=== PATIENT | female | born 1935 | race Caucasian/White ===

== ENCOUNTER 2019-04-06 12:21 | Observation (INO) | payer OTHER ==
[~2019-04-06] VITALS: Ht 160 cm; Wt 56.7 kg
[~2019-04-06 12:21] MED LIST: ASA81 MG PO; Z.0.ALLOPURINOL100 M PO; Z.0.BENAZEPRIL HCL40; Z.0.INDAPAMIDE1.25 M; Z.0.LATANOPROST2.5 M; Z.0.NORVASC5 MG; Z.0.OMEPRAZOLE20 MG; Z.0.SYNTHROID200 MCG; [UNRECOGNIZED DRUG - OTHER]; [UNRECOGNIZED DRUG - OTHER] PO
--- OUTSIDE RECORDS SUMMARY | 2019-04-06 12:25 | XMS REPORT | Summary of Care ---
Author Author Paige Lambert M.A. Organization Unknown Address [facility] Phone Unavailable Care Team Providers Care Film Reproducer Name Role Phone FANNIE Carlton, ELOISE Unavailable Unavailable RUPAL Diane, EDITH Unavailable Unavailable RUPAL AC IA, EIDTH Morales Unavailable Unavailable Shima AC, Kannan Unavailable Unavailable Gavino Aaron MD, Alexandre Unavailable Unavailable MIC AC, ANDREA Dorantes Unavailable Unavailable PRETTY AC, JOSEPH Unavailable Unavailable SILVESTRE PIEDRAP, ELADIO Unavailable Unavailable Unavailable Unavailable Functional Status Name Dates Details Functional status health issues are not documented Status: Name Dates Details Cognitive status health issues are not documented Status: Problems Name Dates Details Preventative health care (V70.0, Z00.00) Status: Active Pain in joint of right shoulder (719.41, M25.511) Status: Active Cramps, extremity (729.82, R25.2) Status: Active Polyneuropathy (356.9, G62.9) Status: Active Skin rash (782.1, R21) Status: Active Eczema, allergic (692.9, L23.9) Status: Active Pyuria (791.9, N39.0) Status: Active Need for pneumococcal vaccination (V03.82, Z23) Status: Active Low back pain (724.2, M54.5) Status: Active Left hip pain (719.45, M25.552) Status: Active Numbness and tingling (782.0, R20.0) Status: Active Advance directive discussed with patient (V65.49, Z71.89) Status: Active Cervical neck pain with evidence of disc disease (722.91, M50.90) Status: Active 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, M17.12) Status: Active Bradycardia, sinus (427.89, R00.1) Status: Active Localized primary osteoarthritis of lower leg, right (715.16, M17.11) Status: Active Edema (782.3, R60.9) Status: Active Normal routine physical examination (V70.0, Z00.00) Status: Active Chronic obstructive pulmonary disease (496, J44.9) Status: Active Hypercalcemia (275.42, E83.52) Status: Active Need for influenza vaccination (V04.81, Z23) Status: Active 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, 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: Active Unclassifiable eczema (692.9, L30.9) Status: Active Varicose veins of legs (454.9, I83.93) Status: Active Skin lesion (709.9, L98.9) Status: Active Limb pain (729.5, M79.609) Status: Active TMJ (dislocation of temporomandibular joint) (830.0, S03.00XA) Status: Active Influenza vaccination ordered (V49.89, Z78.9) Status: Active Dizziness (780.4, R42) Status: Active Postmenopause (V49.81, Z78.0) Status: Active Symptoms of upper respiratory infection (URI) (786.09, R09.89) Status: Active Encounter for diabetic foot exam (250.00, E11.9) Status: Active Right knee pain (719.46, M25.561) Status: Active Peripheral edema (782.3, R60.9) Status: Active Need for hepatitis C screening test (V73.89, Z11.59) Status: Active Abdominal pain, acute, bilateral lower quadrant (789.03, R10.31) Status: Active Abnormal laboratory test (796.4, R89.9) Status: Active Influenza vaccine needed (V04.81, Z23) Status: Active Urinary tract infection (599.0, N39.0) Status: Active Vaginal spotting (623.8, N93.9) Status: Active Acute urinary tract infection (599.0, N39.0) Status: Active Elevated AST (SGOT) (790.4, R74.0) Status: Active Other cirrhosis of liver (571.5, K74.69) Status: Active 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, 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 Pain, hand (729.5, M79.643) Status: Active Wrist pain (719.43, M25.539) Status: Active Skin infection (686.9, L08.9) Status: Active Contact dermatitis (692.9, L25.9) Status: Active Annual physical exam (V70.0, Z00.00) Status: Active Advance directive discussed with patient (V65.49, Z71.89) Status: Active Allergic rhinitis (477.9, J30.9) Status: Active Asymptomatic hyperuricemia (790.6, E79.0) Status: Active B12 deficiency (266.2, E53.8) Status: Active Balance problem (781.99, R26.89) Status: Active Bilateral hearing loss (389.9, H91.93) Status: Active Chronic venous stasis dermatitis 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.1, 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) Status: Active CTS (carpal tunnel syndrome) (354.0, G56.00) Status: Active Esophageal reflux disease (530.81, K21.9) Status: Active Hypothyroidism (244.9, E03.9) Status: Active Osteoporosis, 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 * Start : 08-Dec-2018 Active Aspirin 81 MG TABS one daily * Refills: 0 Active Fish Oil CAPS TAKE 3 CAPSULE DAILY * Refills: 0 Active Centrum Silver TABS TAKE 1 TABLET DAILY. * Refills: 0 Active NovoLOG FlexPen 100 UNIT/ML Subcutaneous Solution Pen-injector Inject 5 units with each meal * Quantity: 3 Refills: 3 EDITH GOLDSMITH M.D. * Start : 16-Oct-2018 Active 5 x 3 ML Pen BD Pen Needle Thao U/F 32G X 4 MM Use 4 times a day as directed * Quantity: 400 Refills: 1 ELOISE GRECO N.P. * Start : 06-Dec-2014 Active Tylenol 500 MG CAPS TAKE 1 CAPSULE EVERY 6 HOURS as needed * Refills: 0 Active Levothyroxine Sodium 175 MCG Oral Tablet TAKE 1 TABLET BY MOUTH EVERY DAY * Quantity: 90 Refills: 1 ELOISE GRECO N.P. * Start : 20-Nov-2018 Active Pancreaze 4200 UNIT Oral Capsule Delayed Release Particles TAKE 1 CAPSULE BY MOUTH THREE TIMES A DAY * Quantity: 270 Refills: 1 EDITH GOLDSMITH M.D. * Start : 29-May-2015 Active Calcium 600 600 MG Oral Tablet TAKE 1 TABLET DAILY. * Quantity: 30 Refills: 0 ELOISE GRECO N.P. Active Levemir FlexTouch 100 UNIT/ML Subcutaneous Solution Pen-injector INJECT 25 UNITS SUBCUTANEOUSLY EVERY EVENING * Quantity: 3 Refills: 1 ELOISE GRECO N.P. * Start : 08-Dec-2018 Active 5 x 3 ML Pen Cranberry TABS TAKE 1 TABLET DAILY * Refills: 0 Active Losartan Potassium 50 MG Oral Tablet TAKE 1 TABLET BY MOUTH TWICE DAILY * Quantity: 180 Refills: 1 ELOISE GRECO N.P. * Start : 29-Jan-2016 Active dilTIAZem HCl ER Coated Beads 120 MG Oral Capsule Extended Release 24 Hour Take 1 capsule once day. * Quantity: 30 Refills: 2 ELOISE GRECO N.P. * Start : 30-Jan-2017 Active OneTouch Verio In Vitro Strip USE DIRECTED TEST 3 TIMES DAILY. * Quantity: 100 Refills: 5 EDITH GOLDSMITH M.D. * Start : 04-Nov-2018 Active OneTouch Jaquelin Lancets Fine CHECK BLOOD GLUCOSE THREE TIMES DAILY * Quantity: 100 Refills: 5 EDITH GOLDSMITH M.D. * Start : 22-Sep-2017 Active OneTouch Verio w/Device Kit Use as directed 3 times daily * Quantity: 1 Refills: 0 EDITH GOLDSMITH M.D. * Start : 22-Sep-2017 Active Omeprazole 40 MG Oral Capsule Delayed Release TAKE 1 CAPSULE DAILY * Quantity: 90 Refills: 1 EDITH GOLDSMITH M.D. * Start : 24-Sep-2018 Active Allergies and Adverse Reactions Name Dates Details Codeine Derivatives (Allergy) Status: Active Lotensin TABS (Allergy) Status: Active Lyrica CAPS (Allergy) Status: Active Tramadol (Allergy) Status: Active Vicodin TABS (Allergy) Status: Active Past Medical History Name Dates Details History of Abnormal urine odor (791.9, R82.90) Status: Resolved History of Acute pain of both ears (388.70, H92.03) Status: Resolved History of Acute upper respiratory infection (465.9, J06.9) Status: Resolved History of chest pain (V13.89, Z87.898) Status: Resolved History of dermatitis (V13.3, Z87.2) Status: Resolved History of Fungal infection (117.9, B49) Status: Resolved History of glaucoma (V12.49, Z86.69) Status: Resolved History of Hernia (553.9, K46.9) Status: Resolved History of Hip pain, bilateral (719.45, M25.551) Status: Resolved History of pancreatitis (V12.79, Z87.19) Status: Resolved Procedures Procedure Dates Details History of Hysterectomy Completed History of Hernia Repair Completed 21-Aug-2012 History of Cholecystectomy Completed History of Pancreatic Surgery Completed Immunization Name Dates Details Pneumococcal polysaccharide vaccine, 23 valent on: 12-Jan-2009 Influenza on: 27-Mar-2012 Fluzone INJ Lot #: [id number] on: 14-Jun-2013 Fluzone INJ Lot #: [id number] on: 02-May-2014 Fluvirin INJ Lot #: [id number] on: 03-Apr-2015 Prevnar 13 Intramuscular Suspension Lot #: [id number] on: 03-Apr-2015 Prevnar 13 Intramuscular Suspension on: 13-May-2016 Fluzone High-Dose 0.5 ML Intramuscular Suspension Prefilled Syringe Lot #: [id number] on: 28-May-2016 Fluzone High-Dose 0.5 ML Intramuscular Suspension Prefilled Syringe Lot #: [id number] on: 21-Mar-2017 Fluzone High-Dose 0.5 ML Intramuscular Suspension Prefilled Syringe Lot #: [id number] on: 21-Apr-2018 Family History Name Dates Details Family history of Hypertension (V17.49) Status: Active Family history of Acute Myocardial Infarction (V17.3) Status: Active Name Dates Details Family history of Hypertension (V17.49) Status: Active Family history of Acute Myocardial Infarction (V17.3) Status: Active Family history of Glaucoma (V19.11) Status: Active Name Dates Details Family history of liver cancer (V16.0, Z80.0) Status: Active Social History Name Dates Details - Status: Name Dates Details Never smoker Vital Signs Date Test Result Details :06 Heart Rate 136 /min Status: O2 SAT 99 % Status: Comments: Source: RA :04 BP Systolic 108 mm[Hg] Status: Comments: Location: LUE; Position: Sitting BP Diastolic 66 mm[Hg] Status: Comments: Location: LUE; Position: Sitting Heart Rate 137 /min Status: Height 63 in Status: Weight 125.8 lb Status: Body Mass Index Calculated 22.28 kg/m2 Status: Body Surface Area Calculated 1.59 m2 Status: Respiration Rate 16 /min Status: Temperature 97.5 f Status: Comments: Method: Oral :17 BP Systolic 131 mm[Hg] Status: Comments: Location: LUE; Position: Sitting BP Diastolic 52 mm[Hg] Status: Comments: Location: LUE; Position: Sitting Heart Rate 65 /min Status: Comments: Location: L Radial; :15 BP Systolic 146 mm[Hg] Status: Comments: Location: LUE; Position: Sitting BP Diastolic 60 mm[Hg] Status: Comments: Location: LUE; Position: Sitting Heart Rate 80 /min Status: Comments: Location: L Radial; Height 63 in Status: Weight 125 lb Status: Body Mass Index Calculated 22.14 kg/m2 Status: Body Surface Area Calculated 1.58 m2 Status: Results Date Description Value Details :46 [QLH] IRON, TOTAL IRON, TOTAL 90 {mcg/dl} (Normal) Range: 45-160 :46 [QLH] ALPHA-FETOPROTEIN (AFP) AND AFP-L3 Comments: REPORT COMMENT:FASTING:NO AFP 1.2 ng/ml (Below low threshold) Range: 1.6-4.5 AFP-L3 SEE NOTE % Range: 0.5-9.9 Comments: NO VALUE DETERMINED The microActiveOtotal analysis system ([employer]) employs microchipcapillary electrophoresis to quantitatively measure AFP andAFP-L3% by immunochemical techniques. The assay principleinvolves DNA-coupled antibodies and dye labeled antibodies,which react with proteins in liquid phase within themicrochannels. Both analytes are quantified usinglaser-induced fluorescence. Instrument and associatedreagents are supplied by [employer] [place], [place], [place]. Patients with elevated AFP-L3% values (>=10%) have beenshown to have an increased risk of developing hepatocellularcarcinoma (HCC). In a selected group of patients, the riskof developing HCC was 48.8% with an elevated AFP-L3% and was7.0% with a negative AFP-L3% result. Limitations of Procedure: 1. The AFP-L3% value is not calculated when the AFP-K3brfplvedtpozk is below 0.3 ng/mL. In such cases the AFP-L3%result field will indicate "NO VALUE DETERMINED" 2.Heterophilic antibodies in human serum can react with theimmunoglobulins incl uded in the assay components causinginterference with in vitro immunoassays. Samples frompatients routinely exposed to animals or animal serumproducts can demonstrate this type of interference and canpotentially cause an anomalous result. The [employer] uTAS Systemhas been formulated to minimize the risk of theinterference; however, potential interactions between raresera and ingredients can occur. 3. For diagnostic purposes,the results obtained from this assay should always be usedand interpreted in conjunction with clinical examination,patient medical history, and other findings. 4. Pregnancycan cause h igh values of AFP-L3% and AFP is notinterpretable in females. 5. AFP producing tumorsother than HCC can show high values of AFP-L3% and AFP. 6.Samples from patients having acute hepatitis and fulminanthepatitis can show high values of AFP-L3% and AFP. 7. It isrecommended that this assay be used in conjunction withimaging studies for clinical diagnosis. 8. Liver diseasescaused by other etiologies such as alcoholic liver disease,hemachromatosis, Vahe's disease, autoimmune hepatitis andsteatohepatisis have not been studied with the assay. 9. Theassay is linear for AFP concentration of 0.3 to 1000 ng/mL.10. Values obtained with different assay methods or kitscannot be used interchangeably. [id number] [QL] CBC (INCLUDES DIFF/PLT) WHITE BLOOD CELL COUNT 4.7 {Thousand/u} (Normal) Range: 3.8-10.8 RED BLOOD CELL COUNT 3.45 {Million/uL} (Below low threshold) Range: 3.80-5.10 HEMAGLOBIN 11.4 g/dl (Below low threshold) Range: 11.7-15.5 HEMATOCRIT 33.7 % (Below low threshold) Range: 35.0-45.0 MCV 97.7 fL (Normal) Range: 80.0-100.0 MCH 33.0 pg (Normal) Range: 27.0-33.0 MCHC 33.8 g/dl (Normal) Range: 32.0-36.0 RDW 13.1 % (Normal) Range: 11.0-15.0 PLATELET COUNT 250 {Thousand/u} (Normal) Range: 140-400 MPV 10.3 fL (Normal) Range: 7.5-12.5 ABSOLUTE NEUTROPHILS 2848 {cells/uL} (Normal) Range: 9083-1638 ABSOLUTE LYMPHOCYTES 1297 {cells/uL} (Normal) Range: 850-3900 ABSOLUTE MONOCYTES 409 {cells/uL} (Normal) Range: 200-950 ABSOLUTE EOSINOPHILS 118 {cells/uL} (Normal) Range: 15-500 ABSOLUTE BASOPHILS 28 {cells/uL} (Normal) Range: 0-200 NEUTROPHILS 60.6 % (Normal) LYMPHOCYTES 27.6 % (Normal) MONOCYTES 8.7 % (Normal) EOSINOPHILS 2.5 % (Normal) BASOPHILS 0.6 % (Normal) [id number]-[id number] [[facility]] VITAMIN B12 Comments: REPORT COMMENT:FASTING:NO VITAMIN B12 558 pg/ml (Normal) Range: 200-1100 Plan of Care Name Dates Details Planned Observations Planned Goals not documented Planned Encounters Appointment; KANNAN RETANA M.D. On: 27-Sep-2019 10:45 Instructions Name Dates Details Instructions not documented Encounters Appointment; ALFRED FORD Encounter Diagnosis: Problem not documented On: 17-Apr-2017 10:30 Appointment; ELOISE GRECO NP Encounter Diagnosis: Problem not documented On: 20-May-2017 9:00 Appointment; ELOISE GRECO NP Encounter Diagnosis: Problem not documented On: 27-May-2017 10:15 Appointment; ELOISE GRECO NP Encounter Diagnosis: Problem not documented On: 19-Aug-2017 10:30 Appointment; ELOISE GRECO NP Encounter Diagnosis: Problem not documented On: 27-Aug-2017 9:30 Appointment; ELOISE GRECO NP Encounter Diagnosis: Problem not documented On: 28-Oct-2017 9:15 Appointment; ELOISE GRECO NP Encounter Diagnosis: Problem not documented On: 04-Dec-2017 12:00 Appointment; ELOISE GRECO NP Encounter Diagnosis: Problem not documented On: 04-Feb-2018 12:00 Appointment; EDITH GOLDSMITH M.D. Encounter Diagnosis: Problem not documented On: 13-Feb-2018 10:30 Appointment; Marc Marshall M.D. Encounter Diagnosis: Problem not documented On: 20-Feb-2018 11:15 Appointment; KANNAN RETANA M.D. Encounter Diagnosis: Problem not documented On: 04-Mar-2018 11:30 Appointment; KANNAN RETANA M.D. Encounter Diagnosis: Problem not documented On: 25-Mar-2018 10:30 Appointment; EDITH GOLDSMITH M.D. Encounter Diagnosis: Problem not documented On: 21-Apr-2018 11:00 Appointment; EDITH GOLDSMITH M.D. Encounter Diagnosis: Problem not documented On: 21-Apr-2018 11:00 Appointment; ALEXANDRE SANTOYO M.D. Encounter Diagnosis: Problem not documented On: 23-Apr-2018 12:50 Appointment; EDITH GOLDSMITH M.D. Encounter Diagnosis: Problem not documented On: 25-May-2018 11:00 Appointment; EDITH GOLDSMITH M.D. Encounter Diagnosis: Problem not documented On: 19-Jun-2018 11:30 Appointment; KANNAN RETANA M.D. Encounter Diagnosis: Problem not documented On: 24-Jun-2018 10:15 Appointment; ELOISE GRECO NP Encounter Diagnosis: Problem not documented On: 19-Aug-2018 10:30 Appointment; EDITH GOLDSMITH M.D. Encounter Diagnosis: Problem not documented On: 24-Sep-2018 11:30 Appointment; ELOISE GRECO NP Encounter Diagnosis: Problem not documented On: 08-Oct-2018 10:15 Appointment; ALEXANDRE SANTOYO M.D. Encounter Diagnosis: Problem not documented On: 22-Oct-2018 12:30 Appointment; KANNAN RETANA M.D. Encounter Diagnosis: Problem not documented On: 30-Nov-2018 9:30 Appointment; ELADIO RIVERS NP Encounter Diagnosis: Problem not documented On: 19-Dec-2018 10:15 Appointment; KANNAN RETANA M.D. Encounter Diagnosis: Problem not documented On: 21-Dec-2018 11:00 Appointment; EDITH GOLDSMITH M.D. Encounter Diagnosis: Problem not documented On: 23-Dec-2018 10:30 Appointment; EDITH GOLDSMITH M.D. Encounter Diagnosis: Problem not documented On: 29-Dec-2018 11:00 Appointment; EDITH GOLDSMITH M.D. Encounter Diagnosis: Problem not documented On: 01-Feb-2019 11:30 Appointment; KANNAN RETANA M.D. Encounter Diagnosis: Problem not documented On: 29-Mar-2019 11:00 Appointment; EDITH GOLDSMITH M.D. Encounter Diagnosis: Problem not documented On: 06-Apr-2019 11:00
--- OUTSIDE RECORDS SUMMARY | 2019-04-06 12:25 | XMS REPORT ---
Author Author [facility] Address Unknown Phone Unavailable Care Team Providers Care Clothing Cutter Name Role Phone Tommie BALES Unavailable Unavailable Problems This patient has no known problems. Allergies, Adverse Reactions, Alerts This patient has no known allergies or adverse reactions. Medications This patient has no known medications. Encounters Start Date/Time End Date/Time Encounter Type Admission Type Attending Clinicians Care Facility Care Department Encounter ID 2018-12-01 15:33:51 Outpatient [id number] Results Test Description Test Time Test Comments Text Results Atomic Results Result Comments CT BRAIN WO [place] [address] Patient Name: ANGEL LUIS ISABEL MR #: [id number] : 1935 Age/Sex: 81/F Req #: [id number] Adm Physician: Ordered by: ERICA BALES MD Report #: [id number] Location: ER Room/Bed: Procedure: [id number] CT/CT BRAIN WO Exam Date: Exam Time: REPORT STATUS: Signed EXAMINATION: Head CT HISTORY: Hypertension, dizziness COMPARISON: None. TECHNIQUE: Multidetector axial images were obtained without contrast from the foramen magnum to the vertex . The images were reconstructed using brain and bone algorithms. Thin section brain images were reformatted into coronal and sagittal planes. Intravenous contrast: None. Motion/streaking artifact limits the evaluation of the skull base and posterior cranial fossa. FINDINGS: Parenchyma: 1. Few scattered white matter hypodensities, most likely nonspecific bowel chronic microvascular ischemic changes. Age indeterminate likely chronic tiny lacunar infarct in the bilateral head of the caudate nuclei and right lentiform nucleus. 2. No mass or hemorrhage. No CT evidence of acute territorial vascular insult. Extra-axial s paces:No abnormal density. No extra-axial fluid collections Brain volume: Normal for age. Ventricles: No hydrocephalus or displacement. Arteries: No density suggestive of thrombus. Dural sinuses: No abnormal density. Extra-axial spaces: No abnormal density. Foramen magnum: No mass, Chiari malformation, or basilar invagination. Sella: No obvious mass. Paranasal/mastoid sinuses: Imaged portions unremarkable. Skull/Scalp: No lytic or blastic lesions. No fractures. IMPRESSION: 1. No acute abnormalities, particularly no intracranial hemorrhage or cortical infarct. 2. Mild chronic microvascular ischemic changes as detailed above. Signed by: Dr. Mayela Garcia M.D. on 03/14/2017 5:44 PM Dictated By: MAYELA GARCIA MD 43 Transcribed By: STEPHENIE on 03/14/171743 COPY TO: ERICA BALES MD CHEST SINGLE (PORTABLE) [place] [address] Patient Name: ANGEL LUIS ISABEL MR #: [id number] : 1935 Age/Sex: 81/F Req #: [id number] Adm Physician: Ordered by: ERICA BALES MD Report #: [id number] Location: ER Room/Bed: Procedure: [id number] DX/CHEST SINGLE (PORTABLE) Exam Date: Exam Time: REPORT STATUS: Signed PROCEDURE: A single AP view of the chest. COMPARISON: DX, CHEST SINGLE, 09/21/2011, 15:10. INDICATIONS: SYNCOPE FINDINGS: Lines/tubes: None. Lungs: The lungs are well inflated and clear. There is no evidence of pneumonia or pulmonary edema. Pleura: There is no pleural effusion or pneumothorax. Heart and mediastinum: The heart and the mediastinum are unremarkable. Bones: No acute bony abnormality. IMPRESSION: 1. No acute cardiopulmonary abnormalities. Jericho Simms M.D. Dictated by: Jericho Simms M.D. on 03/14/2017 at 17:54 Electronically approved by: Jericho Simms M.D. on 03/14/2017 at 17:54 Dictated By: JERICHO SIMMS MD 53 Transcribed By: MARCO on 03/14/171753 COPY TO: ERICA BALES MD
--- OUTSIDE RECORDS SUMMARY | 2019-04-06 12:31 | XMS REPORT | Summary of Care ---
Author Author Paige Lambert M.A. Organization Unknown Address [facility] Phone Unavailable Care Team Providers Care Paradi Tender Name Role Phone FANNIE Carlton, ELOISE Unavailable Unavailable RUPAL Diane, EDITH Unavailable Unavailable RUPAL AC FL, EDITH Morales Unavailable Unavailable Shima AC, Kannan Unavailable [...] Active Liver cirrhosis (571.5, K74.60) Status: Active Narrow complex tachycardia (427.89, I47.1) Status: Active Medications Name Dates Details Allopurinol [...] each meal * Quantity: 3 Refills: 3 GOLDSMITH M.D., EDITH * Start : 16-Oct-2018 Active 5 x [...] M.D. * Start : 04-Nov-2018 Active OneTouch Delalena Lancets Fine CHECK BLOOD GLUCOSE THREE TIMES DAILY * Quantity: 100 Refills: 5 EDITH GOLDSMITH M.D. * Start : 22-Sep-2017 Active OneTouch Verio w/Device Kit Use as directed 3 times daily * Quantity: 1 Refills: 0 EDITH GOLDSMITH M.D. * Start : 22-Sep-2017 Active Omeprazole 40 MG Oral Capsule Delayed Release TAKE 1 CAPSULE DAILY * Quantity: 90 Refills: 1 VERA GOLDSMITH M.D.OLD * Start : 24-Sep-2018 Active Allergies and [...] Influenza on: 27-Mar-2012 Fluzone INJ Lot #: [id number] on: 14-Jun-2013 Fluzone INJ Lot #: [id number] on: 02-May-2014 Fluvirin INJ Lot #: [id number] on: 03-Apr-2015 Prevnar 13 Intramuscular Suspension Lot #: [id number] on: 03-Apr-2015 Prevnar 13 Intramuscular Suspension on: 13-May-2016 Fluzone High-Dose 0.5 ML Intramuscular Suspension Prefilled Syringe Lot #: [id number] on: 28-May-2016 Fluzone High-Dose 0.5 ML Intramuscular Suspension Prefilled Syringe Lot #: [id number] on: 21-Mar-2017 Fluzone High-Dose 0.5 ML Intramuscular Suspension Prefilled Syringe Lot #: [id number] on: 21-Apr-2018 Family History Name Dates Details [...] Range: 0.5-9.9 Comments: NO VALUE DETERMINED The micro-total analysis system (uTASWako) employs microchipcapillary electrophoresis to quantitatively measure AFP andAFP-L3% by immunochemical techniques. The assay principleinvolves DNA-coupled antibodies and dye labeled antibodies,which react with proteins in liquid phase within themicrochannels. Both analytes are quantified usinglaser-induced fluorescence. Instrument and associatedreagents are supplied by [employer] [place], [place], [place]. Patients with elevated AFP-L3% values (>=10%) have beenshown to have an increased risk of developing hepatocellularcarcinoma (HCC). In a selected group of patients, the riskof developing HCC was 48.8% with an elevated AFP-L3% and was7.0% with a negative AFP-L3% result. Limitations of Procedure: 1. The AFP-L3% value is not calculated when the AFP-H9kkpwxrwpoyyng is below 0.3 ng/mL. In such cases the AFP-L3%result field will indicate "NO VALUE DETERMINED" 2.Heterophilic antibodies in human serum can react with theimmunoglobulins incl uded in the assay components causinginterference with in vitro immunoassays. Samples frompatients routinely exposed to animals or animal serumproducts can demonstrate this type of interference and canpotentially cause an anomalous result. The [employer] Systemhas been formulated to minimize the risk [...] assay methods or kitscannot be used interchangeably. [id number] [[facility]] CBC (INCLUDES DIFF/PLT) WHITE BLOOD CELL COUNT [...] 7.5-12.5 ABSOLUTE NEUTROPHILS 2848 {cells/uL} (Normal) Range: 2194-2553 ABSOLUTE LYMPHOCYTES 1297 {cells/uL} (Normal) Range: 850-3900 ABSOLUTE MONOCYTES 409 {cells/uL} (Normal) Range: 200-950 ABSOLUTE EOSINOPHILS 118 {cells/uL} (Normal) Range: 15-500 ABSOLUTE BASOPHILS 28 {cells/uL} (Normal) Range: 0-200 NEUTROPHILS 60.6 % (Normal) LYMPHOCYTES 27.6 % (Normal) MONOCYTES 8.7 % (Normal) EOSINOPHILS 2.5 % (Normal) BASOPHILS 0.6 % (Normal) [id number] [[facility]] VITAMIN B12 Comments: REPORT COMMENT:FASTING:NO VITAMIN B12 558 pg/ml (Normal) Range: 200-1100 Plan of Care Name Dates Details Planned Observations Planned Goals not documented Planned Encounters Appointment; KANNAN RETANA M.D. On: 27-Sep-2019 10:45 Interventions Provided Labs/Procedures/Imaging* EKG (In Office); Done: 06 Apr 2019 Plan* To ED at [facility] for evaluation. Instructions Name Dates Details Instructions not documented Encounters Appointment; ALFRED FORD Encounter Diagnosis: Problem not documented On: 17-Apr-2017 10:30 Appointment; ELOISE GRECO NP Encounter Diagnosis: Problem not documented On: 20-May-2017 9:00 Appointment; ELOISE GRECO NP Encounter Diagnosis: Problem not documented On: 27-May-2017 10:15 Appointment; ELOISE GRECO NP Encounter Diagnosis: Problem not documented On: 19-Aug-2017 10:30 Appointment; ELOISE GRECO COMPUTER VIDEO GAME DESIGNER Encounter Diagnosis: Problem not documented On: 27-Aug-2017 9:30 Appointment; ELOISE GRECO COMPUTER VIDEO GAME DESIGNER Encounter Diagnosis: Problem not documented On: 28-Oct-2017 [...]
[2019-04-06] MEDS ORDERED: DILTIAZEM HCL 5 MG/ML 5 ML VIAL IV ONE (13:00)
[2019-04-06 13:21] LABS: BASOPHILS % 0.3 % (0.0-1.0); EOSINOPHILS # (AUTO) 0.1 (0.0-0.4); EOSINOPHILS % 1.9 % (0.0-6.0); HEMATOCRIT 37.6 % (34.2-44.1); HEMOGLOBIN 12.6 g/dL (12.0-16.0); LYMPHOCYTES # (AUTO) 1.6 (1.0-3.2); MEAN CORPUSCULAR HEMOGLOBIN 33.1 pg (28-32); MEAN CORPUSCULAR HGB CONC 33.5 g/dL (31-35); MEAN CORPUSCULAR VOLUME 98.7 fL (81-99); MONOCYTES # (AUTO) 0.7 (0.2-0.8); MONOCYTES % 10.3 % (4.4-11.3); NEUTROPHILS # (AUTO) 4.5 (2.1-6.9); NEUTROPHILS % 64.1 % (38.7-80.0); PLATELET COUNT 241 x10e3/uL (140-360); RED BLOOD COUNT 3.81 x10e6/uL (3.6-5.1); RED CELL DISTRIBUTION WIDTH 13.2 % (11.7-14.4)
--- NOTE | 2019-04-06 13:30 | Diagnostic Imaging Report ---
Chest, 1 view, 04/06/2019. History: Shortness of breath. Comparison: None available. Findings: The cardiomediastinal silhouette and pulmonary vasculature are within normal limits for a portable exam. There is no focal consolidation or pleural effusion. Advanced degenerative changes are noted in both shoulders. There are no acute osseous or soft tissue abnormalities. Impression: No acute cardiopulmonary abnormality. Signed by: Lazaro Castellon on 04/06/2019 1:27 PM
[2019-04-06 13:39] LABS: ALBUMIN 3.4 g/dL (3.5-5.0); ALBUMIN/GLOBULIN RATIO 0.8 (0.8-2.0); CALCIUM 10.4 mg/dL (8.4-10.2); CREATININE, SERUM 0.94 mg/dL (0.57-1.11)
[2019-04-06 13:49] LABS: CREATINE KINASE MB 2.6 ng/mL (0-5.0)
[2019-04-06 13:51] LABS: BILIRUBIN,URINE NEGATIVE (NEGATIVE); CLARITY,URINE CLOUDY (CLEAR); COLOR,URINE YELLOW (YELLOW); KETONES,URINE NEGATIVE (NEGATIVE); LEUKOCYTE ESTERASE ,URINE NEGATIVE (NEGATIVE); NITRITE,URINE NEGATIVE (NEGATIVE); PROTEIN,URINE DIPSTICK NEGATIVE (NEGATIVE); URINE UROBILINOGEN 0.2 mg/dL (0.2 - 1)
[2019-04-06 14:21] LABS: INR 0.91; PROTHROMBIN TIME 12.7 seconds (11.9-14.5)
[2019-04-06 14:22] LABS: PARTIAL THROMBOPLASTIN TIME 28.3 seconds (23.8-35.5)
[2019-04-06 14:51] LABS: EPITHELIAL CELLS,URINE RARE /LPF; RENAL EPITHELIAL CELLS,URINE RARE
[2019-04-06] MEDS ORDERED: ASPIRIN 81 MG CHEW TAB PO ONE (16:45)
[2019-04-06] MEDS ORDERED: LEVOTHYROXINE112 MCG PO (19:10)
[2019-04-06] MEDS ORDERED: DILTIAZEM HCL 30 MG TAB PO PRN (19:15)
[2019-04-06] MEDS ORDERED: CALCIUM CARBON500 MG PO (19:20)
[2019-04-06] MEDS ORDERED: LEVEMIR100 UNIT/1 SQ (19:20)
[2019-04-06] MEDS ORDERED: FISH OIL 1,2001 EAC1 (19:20)
[2019-04-06] MEDS ORDERED: LOSARTAN POTASS25 MG (19:20)
[2019-04-06] MEDS ORDERED: CRANBERRY200 MG (19:20)
[2019-04-06] MEDS ORDERED: CENTRUM SILVER1 EAC3 (19:20)
[2019-04-06] MEDS ORDERED: NOVOLOG100 UNIT/1 SQ (19:20)
[2019-04-06] MEDS ORDERED: DILTIAZEM 24HR120 M1 PO (19:20)
[2019-04-06] MEDS ORDERED: ACETAMINOP325 MG/10 PO (19:20)
--- NOTE | 2019-04-06 19:21 | NUR ---
REPORT TO AR SHEPARD
--- NOTE | 2019-04-06 20:44 | NUR ---
Received patient from the E.R. via stretcher, Patient is alert and responsive. Patient on a telemetry.
[2019-04-06 21:38] VITALS: BP 189/80
[2019-04-06 21:57] LABS: CREATINE KINASE MB 3.3 ng/mL (0-5.0)
[2019-04-06 22:03] VITALS: BP 189/80
[2019-04-06 22:09] VITALS: BP 189/80
--- NOTE | 2019-04-06 22:10 | NUR ---
Patient is not sure with the name of some medications she is allergic with.
--- NOTE | 2019-04-06 22:16 | NUR ---
bp still high 184/76 mmhg. Patient is asymptomatic.
--- NOTE | 2019-04-06 22:29 | NUR ---
Spoke with Dr. Todd Pro regarding patient's blood pressure. New orders received.
--- NOTE | 2019-04-06 22:58 | NUR ---
Cardiology Consult Dictation# [id number]
[2019-04-06] MEDS: LOSARTAN POTASSIUM 25 MG TAB PO SCH (22:59)
[2019-04-06] MEDS ORDERED: ENOXAPARIN SOD INJ 60 MG/0.6 ML SYR SC SCH (23:00)
[2019-04-06] MEDS ORDERED: DEXTROSE 50% SYRINGE 50 ML IV PRN (23:15)
[2019-04-06] MEDS: ENOXAPARIN SOD INJ 60 MG/0.6 ML SYR SC SCH (23:33)
[2019-04-07] VITALS (7 sets, daily range): BP systolic 164–197; BP diastolic 70–88
--- NOTE | 2019-04-07 02:09 | Consultation ---
DATE OF CONSULTATION: 04/06/2019 Cardiology Consultation REQUESTING PHYSICIAN: Dr. Pro. REASON FOR CONSULTATION: Atrial fibrillation. HISTORY OF PRESENT ILLNESS: This is an 83-year-old woman with history of hypertension, diabetes mellitus, hypothyroidism, and chronic pancreatitis, who was sent to the ER by her PCP Dr. Bess due to chest pain and abnormal EKG. The patient reports she was scheduled to see Dr. Bess for a regular followup today. In route to her office, she developed chest pressure, 5/10 in severity without shortness of breath, nausea, diaphoresis. The pain did not radiate. It only lasted approximately [address] Bess of her symptoms, therefore, she was instructed to present to the ER. She denies any edema, orthopnea, or PND. She was found to have atrial fibrillation on evaluation in the ER. Cardiology consult for further recommendations. REVIEW OF SYSTEMS: Negative except as per HPI. PAST MEDICAL HISTORY: 1. Diabetes mellitus. 2. Hypertension. 3. Hypothyroidism. 4. Chronic pancreatitis. PAST SURGICAL HISTORY: 1. Hysterectomy. 2. Cholecystectomy. 3. large pancreatic pseudocyst. SOCIAL HISTORY: No tobacco, alcohol, or illicit drug. FAMILY HISTORY: Pertinent for father with enlarged heart. ALLERGIES: PLEASE SEE EMR. MEDICATIONS: Please see medication list. PHYSICAL EXAMINATION: VITAL SIGNS: Temperature 98 degrees, pulse 70, respiratory rate 22, blood pressure 134/60, oxygen saturation 99% on room air. GENERAL: Elderly woman, well developed, well nourished, in no acute distress. HEENT: Normocephalic, atraumatic. Pupils equal. No scleral icterus. NECK: Supple. No thyromegaly or cervical lymphadenopathy. No carotid bruits. LUNGS: Clear to auscultation bilaterally. No wheeze or crackles. CARDIOVASCULAR: Normal rate, regular rhythm. No murmur, normal S1, S2. ABDOMEN: Soft, nontender. EXTREMITIES: No edema. NEUROLOGIC: Nonfocal exam. LABORATORY DATA: WBC 10.01, hemoglobin 12.6, hematocrit 37.6, platelets 241. Sodium 136, potassium 4, chloride 103, CO2 24, BUN 22, creatinine 0.94, AST 27, ALT 16, BNP 129, troponin 0.132, INR 0.91. EKG, atrial fibrillation. Telemetry, normal sinus rhythm. Chest x-ray, no acute cardiopulmonary abnormality. IMPRESSION: 1. Atrial fibrillation. 2. Chest pain. 3. Hypertension. 4. Diabetes mellitus. 5. Hypothyroidism. 6. Chronic pancreatitis. RECOMMENDATIONS: Trend cardiac biomarkers, obtain echocardiogram. Start the patient on metoprolol for rate control. The patient's CHADS-VASc score is 5. Anticoagulation, warfarin to continue, start the patient on Lovenox for now. I discussed warfarin versus NOAC with the patient and her family. They will consider their options. Given multiple risk factors, the patient will need ischemic evaluation. Monitor the patient closely on telemetry. Thank you for this consult. We will continue to follow. MD CARLOS Savage/NICHOLE /[id number]
[2019-04-07] MEDS: LEVOTHYROXINE SODIUM 100 MCG TAB PO SCH (05:25)
[2019-04-07] MEDS: LEVOTHYROXINE SODIUM 75 MCG TAB PO SCH (05:25)
[2019-04-07 06:24] LABS: BASOPHILS % 0.5 % (0.0-1.0); EOSINOPHILS # (AUTO) 0.2 (0.0-0.4); EOSINOPHILS % 3.5 % (0.0-6.0); HEMATOCRIT 31.8 % (34.2-44.1); HEMOGLOBIN 10.7 g/dL (12.0-16.0); LYMPHOCYTES # (AUTO) 1.3 (1.0-3.2); LYMPHOCYTES % 29.5 % (18.0-39.1); MEAN CORPUSCULAR HEMOGLOBIN 33.1 pg (28-32); MEAN CORPUSCULAR HGB CONC 33.6 g/dL (31-35); MEAN CORPUSCULAR VOLUME 98.5 fL (81-99); MONOCYTES # (AUTO) 0.6 (0.2-0.8); MONOCYTES % 13.2 % (4.4-11.3); NEUTROPHILS # (AUTO) 2.3 (2.1-6.9); NEUTROPHILS % 52.8 % (38.7-80.0); PLATELET COUNT 189 x10e3/uL (140-360); RED BLOOD COUNT 3.23 x10e6/uL (3.6-5.1); RED CELL DISTRIBUTION WIDTH 13.1 % (11.7-14.4)
[2019-04-07 06:59] LABS: BLOOD UREA NITROGEN 23 mg/dL (7-26); BUN/CREATININE RATIO 29 (6-25); CARBON DIOXIDE 24 mmol/L (22-29); CHLORIDE 107 mmol/L (98-107); EST GLOMERULAR FILTRATION RATE > 60 ML/MIN (60-); GLUCOSE 106 mg/dL (74-118); SODIUM 138 mmol/L (136-145)
--- NOTE | 2019-04-07 07:11 | NUR ---
REPORT RECEIVED FROM INDUSTRIAL TRUCK MECHANIC RN, PT STABLE, CALL LIGHT WITHIN REACH, WILL CONTINUE TO MONITOR
[2019-04-07 07:14] LABS: CHOL/HDL RATIO 4.1 (3.0-3.6)
[2019-04-07] MEDS: INSULIN LISPRO 100 UNIT/1 ML 3ML VIAL SQ SCH ×5 (07:30→21:56)
[2019-04-07] MEDS: OYST-CAL-D 500MG TABLET PO SCH (08:05)
[2019-04-07] MEDS: OMEPRAZOLE 20 MG CAP PO SCH (08:05)
[2019-04-07] MEDS: ALLOPURINOL 100 MG TAB PO SCH (08:08)
[2019-04-07 08:11] LABS: CREATINE KINASE MB 2.4 ng/mL (0-5.0)
[2019-04-07] MEDS: METOPROLOL TARTRATE 25 MG TAB PO SCH ×2 (09:00→17:55)
[2019-04-07] MEDS: LOSARTAN POTASSIUM 25 MG TAB PO SCH ×2 (09:55→17:55)
[2019-04-07] MEDS: ENOXAPARIN SOD INJ 60 MG/0.6 ML SYR SC SCH ×2 (11:00→22:21)
--- NOTE | 2019-04-07 11:27 | NUR ---
PT TAKEN OFF THE UNIT FOR STRESS TEST, LEFT IN STABLE CONDITION.
--- NOTE | 2019-04-07 11:59 | NUR ---
pt returned to room, stress test to be completed at 1300 per RN.
[2019-04-07] MEDS ORDERED: REGADENOSON 0.4 MG/5 ML SYR IV ONE (13:10)
--- NOTE | 2019-04-07 15:04 | NUR ---
PT ARRIVED BACK ON THE UNIT, IN STABLE CONDITION, WILL CONTINUE TO ASSESS
[2019-04-07] MEDS ORDERED: ONDANSETRON HCL INJ 2MG/ML 2ML 2 MG/ML VIAL IV PRN (16:00)
[2019-04-07 17:28] LABS: CREATINE KINASE MB 2.5 ng/mL (0-5.0)
--- NOTE | 2019-04-07 19:00 | NUR ---
received report from day nurse. patient is resting comfortably in bed. bed is in lowest position and call light is within reach. will continue to monitor patient.
--- NOTE | 2019-04-07 19:02 | NUR ---
REPORT GIVEN TO ONCOMING HEAD SWAMPER RN, PT AWAKE, ALERT, NO DISTRESS NOTED.
--- NOTE | 2019-04-07 20:18 | Myoview Stress Test ---
DATE OF STUDY: 04/07/2019 08:01:00 Stress Test - Treadmill ONLY PROCEDURE ANGELINA: Rest/stress single isotope SPECT imaging with pharmacologic stress and gated SPECT imaging. INDICATION: Chest pain. PROCEDURE IN DETAIL: Pharmacologic stress testing was performed with regadenoson per protocol. The heart rate was 67 beats per minute at rest and increased to 102 beats per minute during the regadenoson infusion. The rest blood pressure was 162/70 mmHg and decreased to 152/54 mmHg, which is a normal response. The resting electrocardiogram demonstrated normal sinus rhythm. There were no ST-segment changes suggestive of myocardial ischemia. Myocardial perfusion imaging was performed at rest following the injection of 11 mCi of tetrofosmin. At peak pharmacologic effect, the patient was injected with 33 mCi of tetrofosmin. Gated post-stress tomographic imaging was performed. FINDINGS: The overall quality of study is fair. Left ventricular cavity is noted to be normal size on the rest and stress studies. SPECT images demonstrate homogeneous tracer distribution throughout the myocardium. Gated SPECT imaging reveals normal myocardial thickening and wall motion. The left ventricular ejection fraction was calculated to be greater than 70%. IMPRESSION: Myocardial perfusion imaging is normal. Overall left ventricular systolic function was normal without regional wall motion abnormalities. Uma Reina MD ABS/MODL /[id number]
[2019-04-07] MEDS ORDERED: NON-FORMULARY MEDICATION (Insulin Detemir (Levemir) 25 UNITS) SQ SCH (21:00)
[2019-04-07] MEDS ORDERED: INSULIN GLARGINE 100 UNITS/ML VIAL SQ SCH (21:00)
[2019-04-07] MEDS ORDERED: HYDROXYZINE HCL 10 MG TAB PO PRN (22:30)
[2019-04-07] MEDS ORDERED: LORATADINE 10 MG TAB PO ONE (22:30)
[2019-04-07] MEDS ORDERED: LOSARTAN POTASSIUM 25 MG TAB PO SCH (22:43)
[2019-04-08] VITALS: BP 178/79
--- NOTE | 2019-04-08 00:49 | Progress Note ---
DATE: 04/07/2019 Cardiology Progress Note SUBJECTIVE: The patient denies chest pain or shortness of breath. She was seen for nuclear stress test today. OBJECTIVE: VITAL SIGNS: Temperature 96.3 degrees, pulse 77, respiratory rate 20, blood pressure 197/88, and oxygen saturation 99% on room air. GENERAL: Awake, alert, in no distress. LUNGS: Clear to auscultation bilaterally. No wheezes or crackles. CARDIOVASCULAR: Normal rate, regular rhythm. No murmur. Normal S1, S2. ABDOMEN: Soft, nontender. EXTREMITIES: No edema. CARDIAC MEDICATIONS: Metoprolol tartrate 25 mg p.o. b.i.d., losartan 50 mg p.o. b.i.d., levothyroxine 175 mcg p.o. daily, enoxaparin 60 mg subcu q.12 hours. LABORATORY DATA: WBC 4.31, hemoglobin 10.7, hematocrit 31.8, platelets 189. Sodium 138, potassium 4, chloride 107, CO2 of 24, BUN 23, creatinine 0.8. Troponin 0.036. LDL 88, HDL 34, cholesterol 139, triglycerides 87. TELEMETRY: Normal sinus rhythm. IMPRESSION: 1. Atrial fibrillation. 2. Chest pain. 3. Hypertension. 4. Diabetes mellitus. 5. Hypothyroidism. 6. Chronic pancreatitis. RECOMMENDATIONS: The patient ruled out for myocardial infarction with serial cardiac biomarkers. Nuclear stress test was without evidence of ischemia. The patient's CHADS-VASc score is 5. Continue Lovenox for CVA prophylaxis. Await decision by them regarding warfarin versus NOAC on discharge. Monitor the patient closely on telemetry while admitted. The patient's blood pressure is poorly controlled. We will resume her home dose of diltiazem and assess response. Thank you for this consult. We will continue to follow. Uma Reina MD ABS/MODL /[id number]
[2019-04-08 04:00] VITALS: BP 149/69
[2019-04-08] MEDS: LEVOTHYROXINE SODIUM 75 MCG TAB PO SCH (05:05)
[2019-04-08] MEDS: LEVOTHYROXINE SODIUM 100 MCG TAB PO SCH (05:05)
--- NOTE | 2019-04-08 07:08 | NUR ---
report given to day nurse. patient is resting comfortably in bed. bed is in lowest position and call dunham is within reach.
--- NOTE | 2019-04-08 07:12 | NUR ---
pt alert resp even and unlabored, no distress noted at this time pt is able to make needs known, call light in reach
[2019-04-08] MEDS ORDERED: PANCRELIPASE 6000 ER CAPSULE PO SCH (07:30)
[2019-04-08] MEDS: INSULIN LISPRO 100 UNIT/1 ML 3ML VIAL SQ SCH ×2 (07:30)
[2019-04-08] MEDS ORDERED: [UNRECOGNIZED DRUG - REMARK] PO SCH (07:30)
[2019-04-08 08:30] VITALS: BP 159/72
[2019-04-08] MEDS ORDERED: DILTIAZEM HCL ER 120 MG CAP PO SCH (09:00)
[2019-04-08 09:16] VITALS: BP 159/72
[2019-04-08] MEDS ORDERED: ONDANSETRON HCL 4 MG ORAL DISINTEGRATING TAB PO PRN (09:30)
[2019-04-08] MEDS: OMEPRAZOLE 20 MG CAP PO SCH (09:49)
[2019-04-08] MEDS: METOPROLOL TARTRATE 25 MG TAB PO SCH (09:49)
[2019-04-08] MEDS: ALLOPURINOL 100 MG TAB PO SCH (09:49)
[2019-04-08] MEDS: OYST-CAL-D 500MG TABLET PO SCH (09:49)
[2019-04-08] MEDS: LOSARTAN POTASSIUM 25 MG TAB PO SCH (09:49)
--- NOTE | 2019-04-08 11:34 | NUR ---
pt discharged home at this time no distress noted at this time, pt iv site removed, no bleeding no redness to site. pt was given prescription, and was educated on her medication.
--- NOTE | 2019-04-08 13:38 | Progress Note ---
DATE: 04/08/2019 Cardiology Progress Note SUBJECTIVE: The patient denies chest pain or shortness of breath. OBJECTIVE: VITAL SIGNS: Temperature 97.5 degrees, pulse 82, respiratory rate 18, blood pressure 159/72, oxygen saturation 96% on room air. GENERAL: Awake, alert, in no acute distress. LUNGS: Clear to auscultation bilaterally. No wheezes or crackles. CARDIOVASCULAR: Normal rate, regular rhythm. No murmur. Normal S1 and S2. ABDOMEN: Soft, nontender. EXTREMITIES: No edema. CARDIAC MEDICATIONS: Metoprolol tartrate 25 mg p.o. b.i.d., losartan 50 mg p.o. b.i.d., diltiazem 120 mg p.o. daily, levothyroxine 175 mcg p.o. daily. LABORATORY DATA: None today. TELEMETRY: Normal sinus rhythm. IMPRESSION: 1. Atrial fibrillation. 2. Chest pain. 3. Hypertension. 4. Diabetes mellitus. 5. Hypothyroidism. 6. Chronic pancreatitis. RECOMMENDATIONS: The patient ruled out for myocardial infarction with serial cardiac biomarkers. Nuclear stress test was without evidence of ischemia. The patient's CHADS-VASc score is 5. The patient will be discharged on Eliquis for CVA prophylaxis. Monitor patient on telemetry while admitted. The patient's blood pressure remains elevated. Continue current cardiac medications. Further titration of antihypertensive therapy as an outpatient. Uma Reina MD ABS/MODL /[id number]
--- NOTE | 2019-04-09 07:27 | Discharge Summary ---
PRIMARY CARE PHYSICIAN: Edilson Bess MD. [employer]OT[employer] MACHINE OPERATOR: Dr. Nhi Reina. FINAL DIAGNOSES: 1. Paroxysmal atrial fibrillation. 2. Hypertensive urgency. SUMMARY: An 83-year-old female, came in with heart rate in the 130-140. The patient was placed on Lovenox. She had a normal nuclear stress test. Echocardiogram showed ejection fraction of 50%. The patient will go home today. Adjustment of her medication is made. She will take Cardizem CD 180 mg daily instead of 120. The patient will take Eliquis 5 mg twice a day. The patient is otherwise stable, discharged home today. Follow up as an outpatient. The patient to follow up with Dr. Nhi Reina in approximately one week and PCP, Dr. Edilson Bess within a week. Discussed with the patient at length. LABORATORY DATA: Normal. Sodium 138, potassium 4, chloride 107, bicarb 24, BUN 23, creatinine 0.8, and glucose 106. WBC is 4.3, hemoglobin 10.7, hematocrit 31.8, and platelets 189. MD LANCE Zimmerman/MODL /[id number]
== END 2019-04-08 11:20 | disposition home or self-care (01) ==
LOC: ER 12:28 → INTOOBSV 18:00 → ERHOLD 18:00 → MED/SURG 20:42
PROVIDERS: ADMIT Internal Medicine; ATTEND Internal Medicine
DX: I48.0 Paroxysmal atrial fibrillation (principal); Z79.01 Long term (current) use of anticoagulants; I16.0 Hypertensive urgency; E03.9 Hypothyroidism, unspecified; I10 Essential (primary) hypertension; E11.9 Type 2 diabetes mellitus without complications; E78.5 Hyperlipidemia, unspecified
CPT/HCPCS: 36415 ×3; 71045; 78452; 80048; 80053; 80061; 81001; 82550 ×2; 82553 ×2; 82948 ×3; 83880; 84484 ×2; 85025 ×2; 85610; 85730; 93005; 93017; 93306; 96374; 99284; A9502; G0378 ×3; J1650; J1815; J2785; J3410

== ENCOUNTER 2022-05-15 15:10 | Inpatient (IN) | payer MEDICARE, OTHER ==
[~2022-05-15] VITALS: Ht 160 cm; Wt 56.7 kg
[~2022-05-15 15:10] MED LIST changes: +ACETAMINOP325 MG/10 PO; +CALCIUM CARBON500 MG PO; +CENTRUM SILVER1 EAC3; +CRANBERRY200 MG; +DILTIAZEM 24HR120 M1 PO; +FISH OIL 1,2001 EAC1; +LEVEMIR100 UNIT/1 SQ; +LEVOTHYROXINE112 MCG PO; +LOSARTAN POTASS25 MG; +NOVOLOG100 UNIT/1 SQ
[2022-05-15 15:37] LABS: BASOPHILS % 0.3 % (0.0-1.0); EOSINOPHILS # (AUTO) 0.1 (0.0-0.4); EOSINOPHILS % 3.4 % (0.0-6.0); LYMPHOCYTES # (AUTO) 1.2 (1.0-3.2); LYMPHOCYTES % 31.6 % (18.0-39.1); MEAN CORPUSCULAR HEMOGLOBIN 32.1 pg (28-32); MEAN CORPUSCULAR HGB CONC 30.1 g/dL (31-35); MEAN CORPUSCULAR VOLUME 106.5 fL (81-99); MONOCYTES # (AUTO) 0.3 (0.2-0.8); NEUTROPHILS # (AUTO) 2.1 (2.1-6.9); NEUTROPHILS % 54.4 % (38.7-80.0); PLATELET COUNT 112 x10e3/uL (140-360); RED BLOOD COUNT 2.15 x10e6/uL (3.6-5.1); RED CELL DISTRIBUTION WIDTH 22.9 % (11.7-14.4)
[2022-05-15 15:41] LABS: HEMATOCRIT 22.9 % (34.2-44.1); HEMOGLOBIN 6.9 g/dL (12.0-16.0)
[2022-05-15 15:55] LABS: ALBUMIN 3.4 g/dL (3.5-5.0); ALBUMIN/GLOBULIN RATIO 0.8 (0.8-2.0); CALCIUM 9.5 mg/dL (8.4-10.2); CREATININE, SERUM 1.87 mg/dL (0.57-1.11)
[2022-05-15] MEDS ORDERED: SODIUM CHLORIDE FLUSH 10 ML SYR INJ PRN (16:00)
[2022-05-15] MEDS ORDERED: SODIUM CHLORIDE 0.9% 250ML 250 ML IV ONE (16:00)
[2022-05-15] MEDS ORDERED: ONDANSETRON HCL INJ 2MG/ML 2ML 2 MG/ML VIAL IV PRN (16:00)
[2022-05-15] MEDS ORDERED: SODIUM CHLORIDE 0.9% 1000ML 1,000 ML IV STA (16:06)
[2022-05-15] MEDS ORDERED: IOPAMIDOL 370 MG/ML 100 ML INFUS..BTL INJ ONE (16:31)
[2022-05-15] MEDS ORDERED: SODIUM CHLORIDE 0.9% 100 ML ONE (16:32)
[2022-05-15 20:30] VITALS: BP 168/63
[2022-05-15 21:30] VITALS: BP 168/63
[2022-05-16] VITALS (7 sets, daily range): BP systolic 132–164; BP diastolic 55–88
[2022-05-16 01:11] LABS: % IRON SATURATION 17 % (15-50); IRON 40 ug/dL (50-170); TOTAL IRON BINDING CAPACITY 234 ug/dL (261-478); TRANSFERRIN 167 mg/dL (180-382)
[2022-05-16] MEDS ORDERED: SODIUM CHLORIDE 0.9% 250ML 250 ML ONE (01:49)
[2022-05-16] MEDS ORDERED: ACETAMINOP325 MG/10 PO (06:12)
[2022-05-16] MEDS ORDERED: BUMETANIDE0.5 MG PO (06:13)
[2022-05-16] MEDS ORDERED: CALCIUM CARBON500 MG PO (06:14)
[2022-05-16] MEDS ORDERED: ELIQUIS5 MG PO (06:14)
[2022-05-16] MEDS ORDERED: FERROUS SULFAT325 MG PO (06:15)
[2022-05-16] MEDS ORDERED: FOLIC ACID0.4 MG PO (06:16)
[2022-05-16] MEDS ORDERED: LEVOTHYROXINE112 MCG PO (06:20)
[2022-05-16] MEDS ORDERED: MAGNESIUM OXID400 MG PO (06:21)
[2022-05-16] MEDS ORDERED: PANCREAZE 4,201 EACH (06:29)
[2022-05-16] MEDS ORDERED: LEVEMIR FL100 UNIT/1 SC (06:32)
[2022-05-16] MEDS ORDERED: CRANBERRY450 M2 PO (06:48)
[2022-05-16] MEDS ORDERED: DILTIAZEM 24HR180 M1 PO (06:49)
[2022-05-16] MEDS ORDERED: FISH OIL 1,0001 EACH PO (06:50)
[2022-05-16] MEDS ORDERED: CENTRUM ADULTS1 EACH PO (06:51)
[2022-05-16] MEDS ORDERED: VITAMIN B-121000 MCG PO (06:52)
[2022-05-16] MEDS ORDERED: FUROSEMIDE INJ 10 MG/ML 2 ML VIAL IV PRN (10:15)
[2022-05-16] MEDS ORDERED: DEXTROSE 50% SYRINGE 50 ML IV PRN (10:15)
[2022-05-16] MEDS ORDERED: SODIUM CHLORIDE 0.9% 250ML 250 ML IV ONE (10:15)
[2022-05-16] MEDS: INSULIN LISPRO 100 UNIT/1 ML 3ML VIAL SQ SCH ×5 (11:30→20:30)
[2022-05-16] MEDS ORDERED: ONDANSETRON HCL 4 MG ORAL DISINTEGRATING TAB PO PRN (11:45)
[2022-05-16] MEDS ORDERED: SODIUM CHLORIDE 0.9% 100 ML ONE (13:24)
[2022-05-16] MEDS: IRON SUCROSE 100 MG in SODIUM CHLORIDE 0.9% 100 ML IV SCH (13:30)
[2022-05-16 14:19] LABS: BASOPHILS % 0.4 % (0.0-1.0); EOSINOPHILS # (AUTO) 0.1 (0.0-0.4); EOSINOPHILS % 3.6 % (0.0-6.0); HEMATOCRIT 29.4 % (34.2-44.1); LYMPHOCYTES # (AUTO) 0.7 (1.0-3.2); LYMPHOCYTES % 25.2 % (18.0-39.1); MEAN CORPUSCULAR HEMOGLOBIN 30.2 pg (28-32); MEAN CORPUSCULAR HGB CONC 30.6 g/dL (31-35); MEAN CORPUSCULAR VOLUME 98.7 fL (81-99); MONOCYTES # (AUTO) 0.2 (0.2-0.8); MONOCYTES % 8.3 % (4.4-11.3); NEUTROPHILS # (AUTO) 1.7 (2.1-6.9); NEUTROPHILS % 61.4 % (38.7-80.0); PLATELET COUNT 85 x10e3/uL (140-360); RED BLOOD COUNT 2.98 x10e6/uL (3.6-5.1); RED CELL DISTRIBUTION WIDTH 22.2 % (11.7-14.4)
[2022-05-16 14:39] LABS: CALCIUM 9.1 mg/dL (8.4-10.2); CREATININE, SERUM 1.82 mg/dL (0.57-1.11)
[2022-05-16] MEDS: INSULIN GLARGINE 100 UNITS/ML VIAL SQ SCH (20:31)
[2022-05-16] MEDS ORDERED: NON-FORMULARY MEDICATION (Insulin Detemir (Levemir) 10 UNITS) SQ SCH (21:00)
[2022-05-17] VITALS (8 sets, daily range): BP systolic 143–186; BP diastolic 56–79
[2022-05-17] MEDS ORDERED: BISACODYL 5 MG TAB EC PO ONE ×3 (00:45→01:45)
[2022-05-17] MEDS: LEVOTHYROXINE SODIUM 100 MCG TAB PO SCH (05:44)
[2022-05-17] MEDS: LEVOTHYROXINE SODIUM 75 MCG TAB PO SCH (05:44)
[2022-05-17] MEDS ORDERED: PEG (High)/E-LYTE SOLN 4,000 ML BTL PO ONE (07:00)
[2022-05-17] MEDS: INSULIN LISPRO 100 UNIT/1 ML 3ML VIAL SQ SCH ×7 (07:30→21:00)
[2022-05-17] MEDS: IRON SUCROSE 100 MG in SODIUM CHLORIDE 0.9% 100 ML IV SCH (08:40)
[2022-05-17] MEDS: DILTIAZEM HCL ER 120 MG CAP PO SCH (08:44)
[2022-05-17] MEDS: MAGNESIUM OXIDE 400 MG TAB PO SCH (09:00)
[2022-05-17] MEDS: ALLOPURINOL 100 MG TAB PO SCH (09:00)
[2022-05-17] MEDS ORDERED: BUMETANIDE 1 MG TAB PO SCH (09:00)
[2022-05-17] MEDS ORDERED: HYDRALAZINE HCL 25 MG TAB PO SCH (09:15)
[2022-05-17 09:24] LABS: BASOPHILS % 0.5 % (0.0-1.0); EOSINOPHILS # (AUTO) 0.1 (0.0-0.4); EOSINOPHILS % 3.1 % (0.0-6.0); HEMATOCRIT 33.8 % (34.2-44.1); HEMOGLOBIN 10.4 g/dL (12.0-16.0); LYMPHOCYTES # (AUTO) 0.9 (1.0-3.2); LYMPHOCYTES % 23.1 % (18.0-39.1); MEAN CORPUSCULAR HEMOGLOBIN 30.3 pg (28-32); MEAN CORPUSCULAR HGB CONC 30.8 g/dL (31-35); MEAN CORPUSCULAR VOLUME 98.5 fL (81-99); MONOCYTES # (AUTO) 0.4 (0.2-0.8); MONOCYTES % 9.8 % (4.4-11.3); NEUTROPHILS # (AUTO) 2.4 (2.1-6.9); NEUTROPHILS % 62.5 % (38.7-80.0); PLATELET COUNT 96 x10e3/uL (140-360); RED BLOOD COUNT 3.43 x10e6/uL (3.6-5.1)
[2022-05-17 09:37] LABS: CALCIUM 9.9 mg/dL (8.4-10.2); CREATININE, SERUM 1.78 mg/dL (0.57-1.11)
[2022-05-17] MEDS ORDERED: HYDRALAZINE HCL 20 MG/ML VIAL IV PRN (10:00)
[2022-05-17] MEDS ORDERED: LABETALOL HCL 5 MG/ML 20ML VIAL IV PRN (10:00)
[2022-05-17] MEDS ORDERED: PROPOFOL IV EMULSION 10 MG/ML 20 ML VIAL ONE (12:07)
[2022-05-17] MEDS ORDERED: LIDOCAINE HCL 2% LOCAL INJ 5 ML SDV VIAL INJ ONE (12:07)
[2022-05-17] MEDS: NEBIVOLOL 10 MG TAB PO SCH (12:42)
[2022-05-17] MEDS: HYDRALAZINE HCL 25 MG TAB PO SCH ×2 (15:41→21:58)
[2022-05-17] MEDS ORDERED: MIDAZOLAM HCL 2 MG/2 ML VIAL ONE (18:09)
[2022-05-17] MEDS ORDERED: HYOSCYAMINE SULFATE 0.5 MG/ML INJ ONE (19:18)
[2022-05-17] MEDS: INSULIN GLARGINE 100 UNITS/ML VIAL SQ SCH (21:00)
[2022-05-18] VITALS (7 sets, daily range): BP systolic 119–162; BP diastolic 51–63
[2022-05-18] MEDS: HYDRALAZINE HCL 25 MG TAB PO SCH ×3 (05:39→21:30)
[2022-05-18] MEDS: LEVOTHYROXINE SODIUM 75 MCG TAB PO SCH (05:39)
[2022-05-18] MEDS: LEVOTHYROXINE SODIUM 100 MCG TAB PO SCH (05:39)
[2022-05-18] MEDS: INSULIN LISPRO 100 UNIT/1 ML 3ML VIAL SQ SCH ×7 (07:24→20:49)
[2022-05-18] MEDS: SUCRALFATE 1 GM TAB PO SCH ×3 (08:25→17:10)
[2022-05-18] MEDS: ALLOPURINOL 100 MG TAB PO SCH (08:25)
[2022-05-18] MEDS: NEBIVOLOL 10 MG TAB PO SCH (08:48)
[2022-05-18] MEDS: MAGNESIUM OXIDE 400 MG TAB PO SCH (08:48)
[2022-05-18] MEDS: DILTIAZEM HCL ER 120 MG CAP PO SCH (08:49)
[2022-05-18] MEDS ORDERED: LOSARTAN POTASSIUM 100 MG TAB PO SCH (09:00)
[2022-05-18] MEDS: IRON SUCROSE 100 MG in SODIUM CHLORIDE 0.9% 100 ML IV SCH ×2 (09:00→10:46)
[2022-05-18] MEDS: INSULIN GLARGINE 100 UNITS/ML VIAL SQ SCH (20:48)
[2022-05-19] VITALS (9 sets, daily range): BP systolic 144–180; BP diastolic 51–68
[2022-05-19] MEDS: HYDRALAZINE HCL 25 MG TAB PO SCH ×3 (05:43→14:52)
[2022-05-19] MEDS: LEVOTHYROXINE SODIUM 100 MCG TAB PO SCH (05:45)
[2022-05-19] MEDS: LEVOTHYROXINE SODIUM 75 MCG TAB PO SCH (05:45)
[2022-05-19 06:17] LABS: BASOPHILS % 0.4 % (0.0-1.0); EOSINOPHILS % 1.5 % (0.0-6.0); HEMATOCRIT 27.2 % (34.2-44.1); HEMOGLOBIN 8.3 g/dL (12.0-16.0); LYMPHOCYTES % 36.6 % (18.0-39.1); MEAN CORPUSCULAR HEMOGLOBIN 30.3 pg (28-32); MEAN CORPUSCULAR HGB CONC 30.5 g/dL (31-35); MEAN CORPUSCULAR VOLUME 99.3 fL (81-99); MONOCYTES # (AUTO) 0.3 (0.2-0.8); MONOCYTES % 9.2 % (4.4-11.3); NEUTROPHILS # (AUTO) 1.4 (2.1-6.9); NEUTROPHILS % 51.6 % (38.7-80.0); PLATELET COUNT 76 x10e3/uL (140-360); RED BLOOD COUNT 2.74 x10e6/uL (3.6-5.1); RED CELL DISTRIBUTION WIDTH 21.1 % (11.7-14.4)
[2022-05-19 06:42] LABS: ANION GAP 15.5 mmol/L (8-16); CALCIUM 8.8 mg/dL (8.4-10.2); CREATININE, SERUM 2.24 mg/dL (0.57-1.11); POTASSIUM 4.5 mmol/L (3.5-5.1)
[2022-05-19] MEDS: INSULIN LISPRO 100 UNIT/1 ML 3ML VIAL SQ SCH ×7 (07:30→21:00)
[2022-05-19] MEDS: SUCRALFATE 1 GM TAB PO SCH ×3 (07:58→17:02)
[2022-05-19] MEDS: MAGNESIUM OXIDE 400 MG TAB PO SCH (09:00)
[2022-05-19] MEDS: ALLOPURINOL 100 MG TAB PO SCH (09:09)
[2022-05-19] MEDS: DILTIAZEM HCL ER 120 MG CAP PO SCH (09:09)
[2022-05-19] MEDS: NEBIVOLOL 10 MG TAB PO SCH (09:10)
[2022-05-19] MEDS ORDERED: NEBIVOLOL 10 MG TAB PO NR (11:45)
[2022-05-19] MEDS ORDERED: IRON SUCROSE 100 MG in SODIUM CHLORIDE 0.9% 100 ML IV SCH (11:45)
[2022-05-19] MEDS: INSULIN GLARGINE 100 UNITS/ML VIAL SQ SCH (21:53)
[2022-05-20] VITALS: BP 134/43
[2022-05-20] MEDS: LEVOTHYROXINE SODIUM 100 MCG TAB PO SCH (06:00)
[2022-05-20] MEDS: LEVOTHYROXINE SODIUM 75 MCG TAB PO SCH (06:00)
[2022-05-20 06:15] LABS: EOSINOPHILS # (AUTO) 0.1 (0.0-0.4); EOSINOPHILS % 1.8 % (0.0-6.0); HEMATOCRIT 27.4 % (34.2-44.1); HEMOGLOBIN 8.4 g/dL (12.0-16.0); LYMPHOCYTES # (AUTO) 1.4 (1.0-3.2); LYMPHOCYTES % 34.8 % (18.0-39.1); MEAN CORPUSCULAR HEMOGLOBIN 30.2 pg (28-32); MEAN CORPUSCULAR HGB CONC 30.7 g/dL (31-35); MEAN CORPUSCULAR VOLUME 98.6 fL (81-99); MONOCYTES # (AUTO) 0.5 (0.2-0.8); MONOCYTES % 11.6 % (4.4-11.3); NEUTROPHILS % 51.3 % (38.7-80.0); PLATELET COUNT 75 x10e3/uL (140-360); RED BLOOD COUNT 2.78 x10e6/uL (3.6-5.1)
[2022-05-20] MEDS: HYDRALAZINE HCL 25 MG TAB PO SCH (07:26)
[2022-05-20] MEDS: INSULIN LISPRO 100 UNIT/1 ML 3ML VIAL SQ SCH ×2 (08:00→09:47)
[2022-05-20 08:20] VITALS: BP 134/48
[2022-05-20 08:36] VITALS: BP 134/48
[2022-05-20] MEDS ORDERED: NEBIVOLOL 10 MG TAB PO SCH (09:00)
[2022-05-20] MEDS: SUCRALFATE 1 GM TAB PO SCH (09:46)
[2022-05-20] MEDS: MAGNESIUM OXIDE 400 MG TAB PO SCH (09:49)
[2022-05-20] MEDS: ALLOPURINOL 100 MG TAB PO SCH (09:49)
[2022-05-20] MEDS ORDERED: PANTOPRAZOLE SO40 MG PO (10:45)
[2022-05-20] MEDS ORDERED: CARAFATE1 GM PO (10:46)
[2022-05-20] MEDS ORDERED: HYDRALAZINE HCL50 MG PO (10:46)
[2022-05-20] MEDS ORDERED: BYSTOLIC20 MG PO (10:48)
[2022-05-21] MEDS ORDERED: NEBIVOLOL 10 MG TAB PO SCH (09:00)
== END 2022-05-20 12:44 | disposition home or self-care (01) | DRG 356 ==
LOC: ER 15:19 → ERHOLD 15:54 → MED/SURG3 20:16
PROVIDERS: ADMIT Internal Medicine; ATTEND Internal Medicine
PROC: 0W3P4ZZ Control Bleeding in Gastrointestinal Tract, Percutaneous Endoscopic Approach (ICD-10-PCS; principal; 2022-05-15)
PROC: 0DBH8ZX Excision of Cecum, Via Natural or Artificial Opening Endoscopic, Diagnostic (ICD-10-PCS; 2022-05-15)
PROC: 0DB78ZZ Excision of Stomach, Pylorus, Via Natural or Artificial Opening Endoscopic (ICD-10-PCS; 2022-05-15)
PROC: 0DBE8ZZ Excision of Large Intestine, Via Natural or Artificial Opening Endoscopic (ICD-10-PCS; 2022-05-15)
PROC: 8E0ZXY6 Isolation (ICD-10-PCS; 2022-05-15)
PROC: 30233N1 Transfusion of Nonautologous Red Blood Cells into Peripheral Vein, Percutaneous Approach (ICD-10-PCS; 2022-05-16)
DX: K63.5 Polyp of colon (principal); K20.91 Esophagitis, unspecified with bleeding; K57.31 Diverticulosis of large intestine without perforation or abscess with bleeding; K44.1 Diaphragmatic hernia with gangrene; N17.0 Acute kidney failure with tubular necrosis; U07.1 COVID-19; D62 Acute posthemorrhagic anemia; I48.20 Chronic atrial fibrillation, unspecified; K86.1 Other chronic pancreatitis; Z79.01 Long term (current) use of anticoagulants; E78.5 Hyperlipidemia, unspecified; E03.9 Hypothyroidism, unspecified; I16.0 Hypertensive urgency; K44.9 Diaphragmatic hernia without obstruction or gangrene; K31.7 Polyp of stomach and duodenum; E11.22 Type 2 diabetes mellitus with diabetic chronic kidney disease; I12.9 Hypertensive chronic kidney disease with stage 1 through stage 4 chronic kidney disease, or unspecified chronic kidney disease; N18.30 Chronic kidney disease, stage 3 unspecified; Z79.4 Long term (current) use of insulin; E11.69 Type 2 diabetes mellitus with other specified complication
CPT/HCPCS: 0223U; 36415; 43239; 45378; 74174; 80048; 80053; 82270; 82607; 82746; 82948; 83036; 83540; 83735; 84466; 85025; 85045; 86850; 86870; 86880; 86900; 86905; 86920; 86922; 88305; 88312; 88342; 93005; 94799; 99001; 99251; 99284; J1756; J1815; J1940; J1980; J2001; J2250; J7030; J7050; P9016; Q9967

== ENCOUNTER 2022-06-11 23:38 | Inpatient (IN) | payer MEDICARE ==
[~2022-06-11] VITALS: Ht 154.9 cm; Wt 56.4 kg
[~2022-06-11 23:38] MED LIST changes: +BUMETANIDE0.5 MG PO; +BYSTOLIC20 MG PO; +CARAFATE1 GM PO; +CENTRUM ADULTS1 EACH PO; +CRANBERRY450 M2 PO; +DILTIAZEM 24HR180 M1 PO; +ELIQUIS5 MG PO; +FERROUS SULFAT325 MG PO; +FISH OIL 1,0001 EACH PO; +FOLIC ACID0.4 MG PO; +HYDRALAZINE HCL50 MG PO; +LEVEMIR FL100 UNIT/1 SC; +MAGNESIUM OXID400 MG PO; +PANCREAZE 4,201 EACH; +PANTOPRAZOLE SO40 MG PO; +VITAMIN B-121000 MCG PO
[2022-06-11] MEDS ORDERED: SODIUM CHLORIDE 0.9% 1000ML 1,000 ML IV SCH (23:45)
[2022-06-12] VITALS (8 sets, daily range): BP systolic 117–143; BP diastolic 49–56
[2022-06-12] MEDS ORDERED: ACETAMINOPHEN 325 MG TAB PO STA (00:14)
[2022-06-12] MEDS ORDERED: SODIUM CHLORIDE 0.9% 1000ML 1,000 ML IV ONE (00:15)
[2022-06-12 01:00] LABS: BASOPHILS % 0.3 % (0.0-1.0); HEMATOCRIT 23.3 % (34.2-44.1); LYMPHOCYTES # (AUTO) 0.6 (1.0-3.2); LYMPHOCYTES % 8.6 % (18.0-39.1); MEAN CORPUSCULAR HEMOGLOBIN 30.3 pg (28-32); MEAN CORPUSCULAR VOLUME 100.9 fL (81-99); MONOCYTES # (AUTO) 0.4 (0.2-0.8); MONOCYTES % 6.6 % (4.4-11.3); NEUTROPHILS # (AUTO) 5.4 (2.1-6.9); NEUTROPHILS % 83.3 % (38.7-80.0); PLATELET COUNT 105 x10e3/uL (140-360); RED BLOOD COUNT 2.31 x10e6/uL (3.6-5.1); RED CELL DISTRIBUTION WIDTH 22.5 % (11.7-14.4)
[2022-06-12 01:13] LABS: ALBUMIN 3.6 g/dL (3.5-5.0); ALBUMIN/GLOBULIN RATIO 0.9 (0.8-2.0); ANION GAP 16.8 mmol/L (8-16); CREATININE, SERUM 2.03 mg/dL (0.57-1.11); POTASSIUM 4.8 mmol/L (3.5-5.1)
[2022-06-12 01:20] LABS: CREATINE KINASE MB 0.5 ng/mL (0-5.0)
[2022-06-12 01:26] LABS: CALCIUM 10.9 mg/dL (8.4-10.2)
[2022-06-12] MEDS ORDERED: ONDANSETRON HCL INJ 2MG/ML 2ML 2 MG/ML VIAL IV PRN (01:45)
[2022-06-12 02:05] LABS: CLARITY,URINE CLOUDY (CLEAR); COLOR,URINE YELLOW (YELLOW); KETONES,URINE NEGATIVE (NEGATIVE); LEUKOCYTE ESTERASE ,URINE 1+ (NEGATIVE); NITRITE,URINE POSITIVE (NEGATIVE); PROTEIN,URINE DIPSTICK 2+ (NEGATIVE)
[2022-06-12 02:06] LABS: URINE UROBILINOGEN 0.2 mg/dL (0.2 - 1)
[2022-06-12 02:32] LABS: BACTERIA,URINE MANY /HPF; EPITHELIAL CELLS,URINE FEW /LPF; WBC,URINE (MAN) >50 /HPF (0-5)
[2022-06-12] MEDS ORDERED: ACETAMINOPHEN 325 MG TAB ONE (03:55)
[2022-06-12] MEDS ORDERED: FOLIC ACID PO (05:09)
[2022-06-12] MEDS ORDERED: LATANOPROST2.5 ML OU (05:09)
[2022-06-12] MEDS ORDERED: ELIQUIS2.5 MG PO (05:09)
[2022-06-12] MEDS ORDERED: BUMETANIDE0.5 MG PO (05:09)
[2022-06-12] MEDS ORDERED: SODIUM CHLORIDE 0.9% 250ML 250 ML ONE (06:38)
[2022-06-12 11:01] LABS: CREATINE KINASE MB 0.8 ng/mL (0-5.0)
[2022-06-12] MEDS ORDERED: DEXTROSE 50% SYRINGE 50 ML IV PRN (15:15)
[2022-06-12] MEDS ORDERED: DIPHENHYDRAMINE HCL 25 MG CAP PO PRN (15:15)
[2022-06-12] MEDS ORDERED: LIDOCAINE 4% PATCH TP PRN (15:15)
[2022-06-12] MEDS ORDERED: BENZONATATE 100 MG CAP PO PRN (15:15)
[2022-06-12] MEDS ORDERED: DOCUSATE SODIUM 100 MG CAP PO PRN (15:15)
[2022-06-12] MEDS ORDERED: SIMETHICONE 80 MG CHEW PO PRN (15:15)
[2022-06-12] MEDS ORDERED: MELATONIN 5 MG TABLET PO PRN (15:15)
[2022-06-12] MEDS ORDERED: SODIUM CHLORIDE 0.9% 250ML 250 ML IV ONE (15:30)
[2022-06-12 15:39] LABS: % IRON SATURATION 17 % (15-50); IRON 33 ug/dL (50-170); TOTAL IRON BINDING CAPACITY 189 ug/dL (261-478); TRANSFERRIN 135 mg/dL (180-382)
[2022-06-12] MEDS: FUROSEMIDE INJ 10 MG/ML 4 ML VIAL IV SCH ×2 (16:25→21:30)
[2022-06-12] MEDS ORDERED: FUROSEMIDE INJ 10 MG/ML 2 ML VIAL IV SCH (17:00)
[2022-06-13] VITALS (9 sets, daily range): BP systolic 124–158; BP diastolic 55–76
[2022-06-13] MEDS ORDERED: SODIUM CHLORIDE 0.9% 250ML 250 ML ONE (01:39)
[2022-06-13] MEDS: FUROSEMIDE INJ 10 MG/ML 4 ML VIAL IV SCH ×3 (05:38→22:14)
[2022-06-13 05:53] LABS: BASOPHILS % 0.2 % (0.0-1.0); EOSINOPHILS % 0.2 % (0.0-6.0); HEMOGLOBIN 6.2 g/dL (12.0-16.0); LYMPHOCYTES # (AUTO) 0.7 (1.0-3.2); LYMPHOCYTES % 13.2 % (18.0-39.1); MEAN CORPUSCULAR HEMOGLOBIN 30.4 pg (28-32); MEAN CORPUSCULAR HGB CONC 30.7 g/dL (31-35); MONOCYTES # (AUTO) 0.4 (0.2-0.8); MONOCYTES % 7.3 % (4.4-11.3); NEUTROPHILS # (AUTO) 4.3 (2.1-6.9); NEUTROPHILS % 77.5 % (38.7-80.0); PLATELET COUNT 66 x10e3/uL (140-360); RED BLOOD COUNT 2.04 x10e6/uL (3.6-5.1); RED CELL DISTRIBUTION WIDTH 22.2 % (11.7-14.4)
[2022-06-13 06:02] LABS: HEMATOCRIT 20.2 % (34.2-44.1)
[2022-06-13 06:13] LABS: ALBUMIN 2.8 g/dL (3.5-5.0); ALBUMIN/GLOBULIN RATIO 0.9 (0.8-2.0); ANION GAP 14.9 mmol/L (8-16); CALCIUM 9.4 mg/dL (8.4-10.2); CREATININE, SERUM 2.39 mg/dL (0.57-1.11); MAGNESIUM 1.9 MG/DL (1.3-2.1); PHOSPHORUS 4.5 MG/DL (2.3-4.7); POTASSIUM 3.9 mmol/L (3.5-5.1)
[2022-06-13 06:19] LABS: INR 1.45; PROTHROMBIN TIME 18.8 seconds (11.9-14.5)
[2022-06-13] MEDS: PANTOPRAZOLE SOD 40 MG TABEC PO SCH (08:50)
[2022-06-13] MEDS ORDERED: IRON SUCROSE 100 MG in SODIUM CHLORIDE 0.9% 100 ML IV SCH (09:00)
[2022-06-13] MEDS ORDERED: DIPHENHYDRAMINE HCL INJ 50 MG/ML VIAL IV ONE ×2 (13:15→13:35)
[2022-06-13] MEDS ORDERED: METHYLPREDNISOLONE SOD SUCC 125 MG/2ML VIAL IV ONE (13:15)
[2022-06-13] MEDS ORDERED: FAMOTIDINE 20 MG/2 ML VIAL IV ONE (13:20)
[2022-06-13] MEDS ORDERED: DILTIAZEM HCL 125 ML IV SCH (14:00)
[2022-06-13] MEDS ORDERED: DILTIAZEM HCL 5 MG/ML 5 ML VIAL IV ONE (14:30)
[2022-06-13] MEDS: METOPROLOL SUCCINATE 50 MG TAB XL PO SCH (14:45)
[2022-06-13 15:09] LABS: BASOPHILS % 0.2 % (0.0-1.0); EOSINOPHILS % 0.5 % (0.0-6.0); HEMOGLOBIN 8.6 g/dL (12.0-16.0); LYMPHOCYTES # (AUTO) 0.4 (1.0-3.2); LYMPHOCYTES % 6.8 % (18.0-39.1); MEAN CORPUSCULAR HEMOGLOBIN 29.1 pg (28-32); MEAN CORPUSCULAR HGB CONC 30.7 g/dL (31-35); MEAN CORPUSCULAR VOLUME 94.6 fL (81-99); MONOCYTES # (AUTO) 0.3 (0.2-0.8); MONOCYTES % 5.7 % (4.4-11.3); NEUTROPHILS # (AUTO) 4.8 (2.1-6.9); NEUTROPHILS % 85.2 % (38.7-80.0); PLATELET COUNT 74 x10e3/uL (140-360); RED BLOOD COUNT 2.96 x10e6/uL (3.6-5.1); RED CELL DISTRIBUTION WIDTH 21.2 % (11.7-14.4)
[2022-06-13] MEDS: IRON SUCROSE 100 MG in SODIUM CHLORIDE 0.9% 100 ML IV SCH (21:30)
[2022-06-14] VITALS (8 sets, daily range): BP systolic 129–168; BP diastolic 61–90
[2022-06-14] MEDS: FUROSEMIDE INJ 10 MG/ML 4 ML VIAL IV SCH (05:32)
[2022-06-14 06:30] LABS: BASOPHILS % 0.2 % (0.0-1.0); HEMATOCRIT 25.9 % (34.2-44.1); HEMOGLOBIN 8.1 g/dL (12.0-16.0); LYMPHOCYTES # (AUTO) 0.3 (1.0-3.2); LYMPHOCYTES % 6.8 % (18.0-39.1); MEAN CORPUSCULAR HEMOGLOBIN 29.1 pg (28-32); MEAN CORPUSCULAR HGB CONC 31.3 g/dL (31-35); MEAN CORPUSCULAR VOLUME 93.2 fL (81-99); MONOCYTES # (AUTO) 0.1 (0.2-0.8); MONOCYTES % 3.1 % (4.4-11.3); NEUTROPHILS # (AUTO) 3.6 (2.1-6.9); PLATELET COUNT 75 x10e3/uL (140-360); RED BLOOD COUNT 2.78 x10e6/uL (3.6-5.1); RED CELL DISTRIBUTION WIDTH 21.2 % (11.7-14.4)
[2022-06-14 06:53] LABS: ANION GAP 17.2 mmol/L (8-16); CALCIUM 9.3 mg/dL (8.4-10.2); CREATININE, SERUM 2.4 mg/dL (0.57-1.11); POTASSIUM 3.2 mmol/L (3.5-5.1)
[2022-06-14] MEDS: METOPROLOL SUCCINATE 50 MG TAB XL PO SCH (09:45)
[2022-06-14] MEDS: PANTOPRAZOLE SOD 40 MG TABEC PO SCH (09:45)
[2022-06-14 12:05] LABS: BAND NEUTROPHILS % (MANUAL) 2 %; LYMPHOCYTES % (MANUAL) 4 % (19-48); MONOCYTES % (MANUAL) 1 % (3.4-9.0); NEUTROPHILS % (MANUAL) 92 % (40-74); NUCLEATED RED BLOOD CELLS 3; PLATELET ESTIMATE MODERATELY DECREASED; PLATELET MORPHOLOGY COMMENT NORMAL; RBC MORPHOLOGY COMMENT NORMAL
[2022-06-14] MEDS: IRON SUCROSE 100 MG in SODIUM CHLORIDE 0.9% 100 ML IV SCH (13:36)
[2022-06-14] MEDS ORDERED: TIMOPTIC 0.5%1 EACH OS (15:21)
[2022-06-14] MEDS ORDERED: LATANOPROST2.5 ML OP (15:21)
[2022-06-14] MEDS: LATANOPROST(OPTH) 2.5 ML BTL OP SCH (20:46)
[2022-06-14] MEDS: TIMOLOL MALEATE 0.5% OPTH DRP 5 ML BTL OS SCH (20:47)
[2022-06-14] MEDS: INSULIN LISPRO 100 UNIT/1 ML 3ML VIAL SQ SCH ×2 (20:55→20:57)
[2022-06-15] VITALS (7 sets, daily range): BP systolic 155–158; BP diastolic 75–88
[2022-06-15 07:31] LABS: EOSINOPHILS % 0.2 % (0.0-6.0); HEMATOCRIT 23.8 % (34.2-44.1); HEMOGLOBIN 7.5 g/dL (12.0-16.0); LYMPHOCYTES # (AUTO) 0.6 (1.0-3.2); LYMPHOCYTES % 13.5 % (18.0-39.1); MEAN CORPUSCULAR HEMOGLOBIN 29.2 pg (28-32); MEAN CORPUSCULAR HGB CONC 31.5 g/dL (31-35); MEAN CORPUSCULAR VOLUME 92.6 fL (81-99); MONOCYTES # (AUTO) 0.4 (0.2-0.8); MONOCYTES % 8.3 % (4.4-11.3); NEUTROPHILS # (AUTO) 3.4 (2.1-6.9); NEUTROPHILS % 76.2 % (38.7-80.0); PLATELET COUNT 79 x10e3/uL (140-360); RED BLOOD COUNT 2.57 x10e6/uL (3.6-5.1); RED CELL DISTRIBUTION WIDTH 21.1 % (11.7-14.4)
[2022-06-15 07:51] LABS: ANION GAP 18.1 mmol/L (8-16); CALCIUM 9.1 mg/dL (8.4-10.2); CREATININE, SERUM 2.62 mg/dL (0.57-1.11); POTASSIUM 3.1 mmol/L (3.5-5.1)
[2022-06-15] MEDS: PANTOPRAZOLE SOD 40 MG TABEC PO SCH (10:03)
[2022-06-15] MEDS: METOPROLOL SUCCINATE 50 MG TAB XL PO SCH (10:04)
[2022-06-15] MEDS: TIMOLOL MALEATE 0.5% OPTH DRP 5 ML BTL OS SCH ×2 (10:05→22:04)
[2022-06-15] MEDS: INSULIN LISPRO 100 UNIT/1 ML 3ML VIAL SQ SCH ×4 (10:39→21:00)
[2022-06-15] MEDS: IRON SUCROSE 100 MG in SODIUM CHLORIDE 0.9% 100 ML IV SCH (11:34)
[2022-06-15] MEDS ORDERED: POTASSIUM CHLORIDE 20 MEQ TAB CR PO ONE (13:12)
[2022-06-15] MEDS: LATANOPROST(OPTH) 2.5 ML BTL OP SCH (22:08)
[2022-06-16 07:25] LABS: BASOPHILS % 0.3 % (0.0-1.0); EOSINOPHILS % 1.3 % (0.0-6.0); HEMATOCRIT 22.8 % (34.2-44.1); LYMPHOCYTES # (AUTO) 0.7 (1.0-3.2); LYMPHOCYTES % 23.1 % (18.0-39.1); MEAN CORPUSCULAR HEMOGLOBIN 29.3 pg (28-32); MEAN CORPUSCULAR HGB CONC 31.1 g/dL (31-35); MEAN CORPUSCULAR VOLUME 94.2 fL (81-99); MONOCYTES # (AUTO) 0.4 (0.2-0.8); MONOCYTES % 11.5 % (4.4-11.3); NEUTROPHILS # (AUTO) 1.9 (2.1-6.9); NEUTROPHILS % 61.9 % (38.7-80.0); PLATELET COUNT 73 x10e3/uL (140-360); RED BLOOD COUNT 2.42 x10e6/uL (3.6-5.1); RED CELL DISTRIBUTION WIDTH 21.3 % (11.7-14.4)
[2022-06-16] MEDS: INSULIN LISPRO 100 UNIT/1 ML 3ML VIAL SQ SCH ×4 (07:30→22:18)
[2022-06-16 07:48] LABS: HEMOGLOBIN 7.1 g/dL (12.0-16.0)
[2022-06-16 07:49] LABS: ALBUMIN 2.7 g/dL (3.5-5.0); ALBUMIN/GLOBULIN RATIO 0.9 (0.8-2.0); ANION GAP 15.6 mmol/L (8-16); CALCIUM 8.5 mg/dL (8.4-10.2); CREATININE, SERUM 2.73 mg/dL (0.57-1.11); POTASSIUM 3.6 mmol/L (3.5-5.1)
[2022-06-16 08:51] VITALS: BP 156/83
[2022-06-16 09:00] VITALS: BP 156/83
[2022-06-16] MEDS: PANTOPRAZOLE SOD 40 MG TABEC PO SCH (10:10)
[2022-06-16] MEDS: TIMOLOL MALEATE 0.5% OPTH DRP 5 ML BTL OS SCH ×2 (10:10→22:00)
[2022-06-16] MEDS: METOPROLOL SUCCINATE 50 MG TAB XL PO SCH (10:11)
[2022-06-16] MEDS: IRON SUCROSE 100 MG in SODIUM CHLORIDE 0.9% 100 ML IV SCH (12:00)
[2022-06-16 12:31] VITALS: BP 158/95
[2022-06-16 15:41] LABS: BAND NEUTROPHILS % (MANUAL) 1 %; EOSINOPHILS % (MANUAL) 3 % (0-7); LYMPHOCYTES % (MANUAL) 31 % (19-48); MONOCYTES % (MANUAL) 4 % (3.4-9.0); MYELOCYTES % (MANUAL) 1 % (0-0); NEUTROPHILS % (MANUAL) 59 % (40-74); NUCLEATED RED BLOOD CELLS 6
[2022-06-16 15:42] LABS: PLATELET ESTIMATE MODERATELY DECREASED
[2022-06-16 15:43] LABS: ANISOCYTOSIS SLIGHT; PLATELET MORPHOLOGY COMMENT NORMAL
[2022-06-16 16:11] VITALS: BP 159/80
[2022-06-16 20:00] VITALS: BP 145/70
[2022-06-16] MEDS: LATANOPROST(OPTH) 2.5 ML BTL OP SCH (22:00)
[2022-06-17] MEDS: ALBUTEROL/IPRATROPIUM 3 ML NEB NEB PRN (01:00)
[2022-06-17 04:00] VITALS: BP 167/70
[2022-06-17 05:41] LABS: BASOPHILS % 0.5 % (0.0-1.0); EOSINOPHILS # (AUTO) 0.1 (0.0-0.4); EOSINOPHILS % 2.1 % (0.0-6.0); HEMATOCRIT 26.6 % (34.2-44.1); HEMOGLOBIN 8.1 g/dL (12.0-16.0); LYMPHOCYTES # (AUTO) 0.8 (1.0-3.2); LYMPHOCYTES % 22.5 % (18.0-39.1); MEAN CORPUSCULAR HGB CONC 30.5 g/dL (31-35); MEAN CORPUSCULAR VOLUME 95.3 fL (81-99); MONOCYTES # (AUTO) 0.4 (0.2-0.8); MONOCYTES % 11.5 % (4.4-11.3); NEUTROPHILS # (AUTO) 2.3 (2.1-6.9); PLATELET COUNT 94 x10e3/uL (140-360); RED BLOOD COUNT 2.79 x10e6/uL (3.6-5.1); RED CELL DISTRIBUTION WIDTH 21.2 % (11.7-14.4)
[2022-06-17 06:30] LABS: ANION GAP 18.6 mmol/L (8-16); CALCIUM 9.1 mg/dL (8.4-10.2); CREATININE, SERUM 2.26 mg/dL (0.57-1.11); POTASSIUM 3.6 mmol/L (3.5-5.1)
[2022-06-17] MEDS: INSULIN LISPRO 100 UNIT/1 ML 3ML VIAL SQ SCH ×4 (07:30→21:00)
[2022-06-17 08:00] VITALS: BP 196/98
[2022-06-17] MEDS: PANTOPRAZOLE SOD 40 MG TABEC PO SCH (08:34)
[2022-06-17] MEDS: IRON SUCROSE 100 MG in SODIUM CHLORIDE 0.9% 100 ML IV SCH (08:35)
[2022-06-17] MEDS: METOPROLOL SUCCINATE 50 MG TAB XL PO SCH (08:36)
[2022-06-17] MEDS: TIMOLOL MALEATE 0.5% OPTH DRP 5 ML BTL OS SCH ×2 (08:45→21:00)
[2022-06-17 09:20] LABS: INR 1.1; PROTHROMBIN TIME 15.1 seconds (11.9-14.5)
[2022-06-17] MEDS ORDERED: FUROSEMIDE INJ 10 MG/ML 4 ML VIAL IV ONE (11:45)
[2022-06-17 13:03] VITALS: BP 178/94
[2022-06-17] MEDS ORDERED: ONDANSETRON HCL 4 MG ORAL DISINTEGRATING TAB PO PRN (14:15)
[2022-06-17] MEDS: HYDRALAZINE HCL 20 MG/ML VIAL IV PRN (14:18)
[2022-06-17 16:17] VITALS: BP 174/89
[2022-06-17] MEDS: NIFEDIPINE CR 30 MG TAB PO SCH (17:00)
[2022-06-17 20:00] VITALS: BP 139/81
[2022-06-17] MEDS: LATANOPROST(OPTH) 2.5 ML BTL OP SCH (21:04)
[2022-06-18] VITALS (7 sets, daily range): BP systolic 115–151; BP diastolic 59–93
[2022-06-18] MEDS: ALBUTEROL/IPRATROPIUM 3 ML NEB NEB PRN (04:10)
[2022-06-18 06:21] LABS: ANION GAP 17.4 mmol/L (8-16); CREATININE, SERUM 1.99 mg/dL (0.57-1.11); POTASSIUM 3.4 mmol/L (3.5-5.1)
[2022-06-18] MEDS: INSULIN LISPRO 100 UNIT/1 ML 3ML VIAL SQ SCH ×4 (08:00→22:13)
[2022-06-18] MEDS ORDERED: NIFEDIPINE CR 30 MG TAB PO SCH (09:00)
[2022-06-18] MEDS: TIMOLOL MALEATE 0.5% OPTH DRP 5 ML BTL OS SCH ×2 (10:24→22:05)
[2022-06-18] MEDS: METOPROLOL SUCCINATE 50 MG TAB XL PO SCH (10:24)
[2022-06-18] MEDS: PANTOPRAZOLE SOD 40 MG TABEC PO SCH (10:24)
[2022-06-18] MEDS: FUROSEMIDE INJ 10 MG/ML 4 ML VIAL IV SCH ×2 (10:24→22:05)
[2022-06-18] MEDS ORDERED: POTASSIUM CHLORIDE 10MEQ EA PO ONE (10:45)
[2022-06-18] MEDS: NIFEDIPINE CR 30 MG TAB PO SCH (12:55)
[2022-06-18] MEDS: LATANOPROST(OPTH) 2.5 ML BTL OP SCH (22:06)
[2022-06-19] VITALS (9 sets, daily range): BP systolic 119–144; BP diastolic 53–92
[2022-06-19 06:36] LABS: BASOPHILS % 0.5 % (0.0-1.0); EOSINOPHILS # (AUTO) 0.1 (0.0-0.4); EOSINOPHILS % 1.4 % (0.0-6.0); HEMATOCRIT 24.4 % (34.2-44.1); LYMPHOCYTES % 22.6 % (18.0-39.1); MEAN CORPUSCULAR HEMOGLOBIN 29.6 pg (28-32); MEAN CORPUSCULAR HGB CONC 32.8 g/dL (31-35); MEAN CORPUSCULAR VOLUME 90.4 fL (81-99); MONOCYTES # (AUTO) 0.4 (0.2-0.8); MONOCYTES % 9.6 % (4.4-11.3); NEUTROPHILS # (AUTO) 2.7 (2.1-6.9); NEUTROPHILS % 62.2 % (38.7-80.0); PLATELET COUNT 103 x10e3/uL (140-360); RED CELL DISTRIBUTION WIDTH 22.1 % (11.7-14.4)
[2022-06-19 06:42] LABS: ANION GAP 18.8 mmol/L (8-16); CALCIUM 8.9 mg/dL (8.4-10.2); CREATININE, SERUM 2.2 mg/dL (0.57-1.11); POTASSIUM 3.8 mmol/L (3.5-5.1)
[2022-06-19] MEDS: INSULIN LISPRO 100 UNIT/1 ML 3ML VIAL SQ SCH ×4 (07:30→21:00)
[2022-06-19] MEDS: TIMOLOL MALEATE 0.5% OPTH DRP 5 ML BTL OS SCH ×2 (12:56→21:26)
[2022-06-19] MEDS: METOPROLOL SUCCINATE 50 MG TAB XL PO SCH (12:59)
[2022-06-19] MEDS: FUROSEMIDE INJ 10 MG/ML 4 ML VIAL IV SCH ×2 (13:00→21:27)
[2022-06-19] MEDS: IRON-VITAMIN-MINERAL CAPSULE PO SCH ×2 (13:05→18:20)
[2022-06-19] MEDS: POTASSIUM CHLORIDE 20 MEQ TAB CR PO PRN (13:10)
[2022-06-19] MEDS: NIFEDIPINE CR 30 MG TAB PO SCH (13:11)
[2022-06-19] MEDS: PANTOPRAZOLE SOD 40 MG TABEC PO SCH (13:11)
[2022-06-19] MEDS ORDERED: EPOETIN ALFA-EPBX 10,000 UNIT/ML VIAL SC ONE ×2 (14:00→18:30)
[2022-06-19] MEDS: LATANOPROST(OPTH) 2.5 ML BTL OP SCH (21:27)
[2022-06-20] VITALS (16 sets, daily range): BP systolic 112–152; BP diastolic 60–92
[2022-06-20 07:13] LABS: BASOPHILS % 0.5 % (0.0-1.0); EOSINOPHILS # (AUTO) 0.1 (0.0-0.4); EOSINOPHILS % 1.3 % (0.0-6.0); HEMATOCRIT 24.1 % (34.2-44.1); LYMPHOCYTES # (AUTO) 0.8 (1.0-3.2); LYMPHOCYTES % 21.4 % (18.0-39.1); MEAN CORPUSCULAR HEMOGLOBIN 29.9 pg (28-32); MEAN CORPUSCULAR HGB CONC 33.2 g/dL (31-35); MEAN CORPUSCULAR VOLUME 89.9 fL (81-99); MONOCYTES # (AUTO) 0.3 (0.2-0.8); MONOCYTES % 8.4 % (4.4-11.3); NEUTROPHILS # (AUTO) 2.4 (2.1-6.9); NEUTROPHILS % 63.7 % (38.7-80.0); PLATELET COUNT 91 x10e3/uL (140-360); RED BLOOD COUNT 2.68 x10e6/uL (3.6-5.1); RED CELL DISTRIBUTION WIDTH 22.2 % (11.7-14.4)
[2022-06-20] MEDS: INSULIN LISPRO 100 UNIT/1 ML 3ML VIAL SQ SCH ×4 (07:30→21:51)
[2022-06-20] MEDS: PANTOPRAZOLE SOD 40 MG TABEC PO SCH (07:30)
[2022-06-20] MEDS: IRON-VITAMIN-MINERAL CAPSULE PO SCH ×2 (09:00→17:00)
[2022-06-20] MEDS: NIFEDIPINE CR 30 MG TAB PO SCH (09:00)
[2022-06-20] MEDS: METOPROLOL SUCCINATE 50 MG TAB XL PO SCH (09:00)
[2022-06-20] MEDS: TIMOLOL MALEATE 0.5% OPTH DRP 5 ML BTL OS SCH ×2 (09:00→21:49)
[2022-06-20] MEDS: FUROSEMIDE INJ 10 MG/ML 4 ML VIAL IV SCH ×2 (13:27→21:48)
[2022-06-20] MEDS ORDERED: IOPAMIDOL 370 MG/ML 100 ML INFUS..BTL INJ ONE (15:52)
[2022-06-20] MEDS ORDERED: SODIUM CHLORIDE 0.9% 100 ML ONE (15:52)
[2022-06-20] MEDS: LATANOPROST(OPTH) 2.5 ML BTL OP SCH (21:49)
[2022-06-20] MEDS: ENOXAPARIN 30 MG/0.3 ML SYR SC SCH (22:55)
[2022-06-21] VITALS (19 sets, daily range): BP systolic 121–165; BP diastolic 62–96
[2022-06-21 07:03] LABS: BASOPHILS % 0.9 % (0.0-1.0); EOSINOPHILS % 0.9 % (0.0-6.0); HEMATOCRIT 24.9 % (34.2-44.1); HEMOGLOBIN 7.7 g/dL (12.0-16.0); LYMPHOCYTES # (AUTO) 0.7 (1.0-3.2); LYMPHOCYTES % 21.9 % (18.0-39.1); MEAN CORPUSCULAR HEMOGLOBIN 29.5 pg (28-32); MEAN CORPUSCULAR HGB CONC 30.9 g/dL (31-35); MEAN CORPUSCULAR VOLUME 95.4 fL (81-99); MONOCYTES # (AUTO) 0.4 (0.2-0.8); MONOCYTES % 10.8 % (4.4-11.3); NEUTROPHILS # (AUTO) 2.1 (2.1-6.9); NEUTROPHILS % 62.5 % (38.7-80.0); PLATELET COUNT 83 x10e3/uL (140-360); RED BLOOD COUNT 2.61 x10e6/uL (3.6-5.1); RED CELL DISTRIBUTION WIDTH 21.9 % (11.7-14.4)
[2022-06-21] MEDS: INSULIN LISPRO 100 UNIT/1 ML 3ML VIAL SQ SCH ×4 (07:30→21:00)
[2022-06-21 07:32] LABS: ANION GAP 13.4 mmol/L (8-16); CALCIUM 8.5 mg/dL (8.4-10.2); CREATININE, SERUM 1.81 mg/dL (0.57-1.11); POTASSIUM 3.4 mmol/L (3.5-5.1)
[2022-06-21 08:21] LABS: LYMPHOCYTES % (MANUAL) 21 % (19-48); MONOCYTES % (MANUAL) 5 % (3.4-9.0); NEUTROPHILS % (MANUAL) 74 % (40-74); PLATELET ESTIMATE MODERATELY DECREASED; PLATELET MORPHOLOGY COMMENT NORMAL; RBC MORPHOLOGY COMMENT NORMAL
[2022-06-21] MEDS: PANTOPRAZOLE SOD 40 MG TABEC PO SCH (08:46)
[2022-06-21] MEDS: NIFEDIPINE CR 30 MG TAB PO SCH (08:46)
[2022-06-21] MEDS: METOPROLOL SUCCINATE 50 MG TAB XL PO SCH (08:46)
[2022-06-21] MEDS: IRON-VITAMIN-MINERAL CAPSULE PO SCH ×2 (08:47→17:15)
[2022-06-21] MEDS: TIMOLOL MALEATE 0.5% OPTH DRP 5 ML BTL OS SCH ×2 (08:48→21:36)
[2022-06-21] MEDS ORDERED: POTASSIUM CHLORIDE 10MEQ EA PO ONE (09:45)
[2022-06-21] MEDS ORDERED: FUROSEMIDE INJ 10 MG/ML 2 ML VIAL IV SCH (13:30)
[2022-06-21] MEDS: LATANOPROST(OPTH) 2.5 ML BTL OP SCH (21:35)
[2022-06-21] MEDS: ENOXAPARIN 30 MG/0.3 ML SYR SC SCH (21:35)
[2022-06-21] MEDS: ALBUTEROL/IPRATROPIUM 3 ML NEB NEB PRN (23:10)
[2022-06-22] VITALS (8 sets, daily range): BP systolic 131–154; BP diastolic 58–75
[2022-06-22] MEDS: FUROSEMIDE INJ 10 MG/ML 2 ML VIAL IV SCH ×2 (06:33→17:22)
[2022-06-22] MEDS: INSULIN LISPRO 100 UNIT/1 ML 3ML VIAL SQ SCH ×4 (07:30→20:48)
[2022-06-22 08:15] LABS: BASOPHILS % 0.2 % (0.0-1.0); EOSINOPHILS % 0.2 % (0.0-6.0); HEMATOCRIT 28.3 % (34.2-44.1); HEMOGLOBIN 8.5 g/dL (12.0-16.0); LYMPHOCYTES # (AUTO) 0.7 (1.0-3.2); LYMPHOCYTES % 13.3 % (18.0-39.1); MEAN CORPUSCULAR HEMOGLOBIN 29.4 pg (28-32); MEAN CORPUSCULAR VOLUME 97.9 fL (81-99); MONOCYTES # (AUTO) 0.4 (0.2-0.8); MONOCYTES % 8.8 % (4.4-11.3); NEUTROPHILS # (AUTO) 3.8 (2.1-6.9); NEUTROPHILS % 74.7 % (38.7-80.0); PLATELET COUNT 123 x10e3/uL (140-360); RED BLOOD COUNT 2.89 x10e6/uL (3.6-5.1); RED CELL DISTRIBUTION WIDTH 22.5 % (11.7-14.4)
[2022-06-22 08:39] LABS: ALBUMIN/GLOBULIN RATIO 0.7 (0.8-2.0); ANION GAP 21.6 mmol/L (8-16); CALCIUM 9.1 mg/dL (8.4-10.2); CREATININE, SERUM 1.87 mg/dL (0.57-1.11); POTASSIUM 3.6 mmol/L (3.5-5.1)
[2022-06-22] MEDS: IRON-VITAMIN-MINERAL CAPSULE PO SCH ×2 (09:31→17:21)
[2022-06-22] MEDS: TIMOLOL MALEATE 0.5% OPTH DRP 5 ML BTL OS SCH ×2 (09:31→20:39)
[2022-06-22] MEDS: METOPROLOL SUCCINATE 50 MG TAB XL PO SCH (09:32)
[2022-06-22] MEDS: PANTOPRAZOLE SOD 40 MG TABEC PO SCH (09:32)
[2022-06-22] MEDS: NIFEDIPINE CR 30 MG TAB PO SCH (09:33)
[2022-06-22] MEDS: ALBUTEROL/IPRATROPIUM 3 ML NEB NEB PRN (20:17)
[2022-06-22] MEDS: ENOXAPARIN 30 MG/0.3 ML SYR SC SCH (20:40)
[2022-06-22] MEDS: LATANOPROST(OPTH) 2.5 ML BTL OP SCH (20:49)
[2022-06-23] VITALS (8 sets, daily range): BP systolic 125–155; BP diastolic 52–66
[2022-06-23] MEDS: FUROSEMIDE INJ 10 MG/ML 2 ML VIAL IV SCH ×2 (06:11→18:00)
[2022-06-23] MEDS: INSULIN LISPRO 100 UNIT/1 ML 3ML VIAL SQ SCH ×4 (07:30→20:43)
[2022-06-23 07:36] LABS: BASOPHILS % 0.7 % (0.0-1.0); EOSINOPHILS % 0.7 % (0.0-6.0); HEMATOCRIT 24.6 % (34.2-44.1); HEMOGLOBIN 7.9 g/dL (12.0-16.0); LYMPHOCYTES % 21.9 % (18.0-39.1); MEAN CORPUSCULAR HEMOGLOBIN 29.7 pg (28-32); MEAN CORPUSCULAR HGB CONC 32.1 g/dL (31-35); MEAN CORPUSCULAR VOLUME 92.5 fL (81-99); MONOCYTES # (AUTO) 0.5 (0.2-0.8); MONOCYTES % 10.6 % (4.4-11.3); NEUTROPHILS # (AUTO) 2.7 (2.1-6.9); NEUTROPHILS % 61.8 % (38.7-80.0); PLATELET COUNT 120 x10e3/uL (140-360); RED BLOOD COUNT 2.66 x10e6/uL (3.6-5.1); RED CELL DISTRIBUTION WIDTH 22.9 % (11.7-14.4)
[2022-06-23 08:14] LABS: ANION GAP 19.7 mmol/L (8-16); CALCIUM 8.8 mg/dL (8.4-10.2); CREATININE, SERUM 2.12 mg/dL (0.57-1.11); POTASSIUM 3.7 mmol/L (3.5-5.1)
[2022-06-23] MEDS: IRON-VITAMIN-MINERAL CAPSULE PO SCH ×2 (09:43→17:59)
[2022-06-23] MEDS: METOPROLOL SUCCINATE 50 MG TAB XL PO SCH (09:43)
[2022-06-23] MEDS: NIFEDIPINE CR 30 MG TAB PO SCH (09:44)
[2022-06-23] MEDS: PANTOPRAZOLE SOD 40 MG TABEC PO SCH (09:44)
[2022-06-23] MEDS: TIMOLOL MALEATE 0.5% OPTH DRP 5 ML BTL OS SCH ×2 (09:46→20:42)
[2022-06-23] MEDS: HYDRALAZINE HCL 20 MG/ML VIAL IV PRN (12:20)
[2022-06-23] MEDS: APIXAB 2.5 MG TABLET PO SCH (17:59)
[2022-06-23] MEDS: ALBUTEROL/IPRATROPIUM 3 ML NEB NEB PRN (19:20)
[2022-06-23] MEDS: LATANOPROST(OPTH) 2.5 ML BTL OP SCH (20:42)
[2022-06-24] VITALS (9 sets, daily range): BP systolic 97–165; BP diastolic 52–63
[2022-06-24] MEDS: FUROSEMIDE INJ 10 MG/ML 2 ML VIAL IV SCH ×2 (05:22→17:09)
[2022-06-24] MEDS ORDERED: HYDRALAZINE HCL 25 MG TAB PO PRN (07:15)
[2022-06-24] MEDS: INSULIN LISPRO 100 UNIT/1 ML 3ML VIAL SQ SCH ×4 (07:30→21:47)
[2022-06-24 07:50] LABS: BASOPHILS % 0.3 % (0.0-1.0); EOSINOPHILS % 0.6 % (0.0-6.0); HEMATOCRIT 25.3 % (34.2-44.1); HEMOGLOBIN 7.8 g/dL (12.0-16.0); LYMPHOCYTES # (AUTO) 0.7 (1.0-3.2); LYMPHOCYTES % 20.1 % (18.0-39.1); MEAN CORPUSCULAR HEMOGLOBIN 29.7 pg (28-32); MEAN CORPUSCULAR HGB CONC 30.8 g/dL (31-35); MEAN CORPUSCULAR VOLUME 96.2 fL (81-99); MONOCYTES # (AUTO) 0.4 (0.2-0.8); MONOCYTES % 10.2 % (4.4-11.3); NEUTROPHILS # (AUTO) 2.4 (2.1-6.9); NEUTROPHILS % 65.2 % (38.7-80.0); RED BLOOD COUNT 2.63 x10e6/uL (3.6-5.1); RED CELL DISTRIBUTION WIDTH 22.6 % (11.7-14.4)
[2022-06-24 07:55] LABS: PLATELET COUNT 106 x10e3/uL (140-360)
[2022-06-24 07:56] LABS: ANION GAP 17.4 mmol/L (8-16); CALCIUM 8.5 mg/dL (8.4-10.2); CREATININE, SERUM 2.27 mg/dL (0.57-1.11); POTASSIUM 3.4 mmol/L (3.5-5.1)
[2022-06-24] MEDS: POTASSIUM CHLORIDE 20 MEQ TAB CR PO PRN (10:48)
[2022-06-24] MEDS: METOPROLOL SUCCINATE 50 MG TAB XL PO SCH (10:48)
[2022-06-24] MEDS: PANTOPRAZOLE SOD 40 MG TABEC PO SCH (10:49)
[2022-06-24] MEDS: NIFEDIPINE CR 30 MG TAB PO SCH (10:49)
[2022-06-24] MEDS: IRON-VITAMIN-MINERAL CAPSULE PO SCH ×2 (10:49→17:09)
[2022-06-24] MEDS: APIXAB 2.5 MG TABLET PO SCH ×2 (10:49→17:09)
[2022-06-24] MEDS: TIMOLOL MALEATE 0.5% OPTH DRP 5 ML BTL OS SCH ×2 (10:49→21:46)
[2022-06-24] MEDS: ACETAMINOPHEN 325 MG TAB PO PRN (10:54)
[2022-06-24] MEDS: LATANOPROST(OPTH) 2.5 ML BTL OP SCH (21:45)
[2022-06-25] VITALS: BP 123/53
[2022-06-25 04:00] VITALS: BP 152/68
[2022-06-25] MEDS: FUROSEMIDE INJ 10 MG/ML 2 ML VIAL IV SCH (05:51)
[2022-06-25] MEDS: ACETAMINOPHEN 325 MG TAB PO PRN (05:51)
[2022-06-25 06:02] LABS: BASOPHILS % 0.8 % (0.0-1.0); EOSINOPHILS % 0.5 % (0.0-6.0); HEMATOCRIT 24.3 % (34.2-44.1); HEMOGLOBIN 7.9 g/dL (12.0-16.0); LYMPHOCYTES # (AUTO) 0.6 (1.0-3.2); MEAN CORPUSCULAR HEMOGLOBIN 29.7 pg (28-32); MEAN CORPUSCULAR HGB CONC 32.5 g/dL (31-35); MEAN CORPUSCULAR VOLUME 91.4 fL (81-99); MONOCYTES # (AUTO) 0.4 (0.2-0.8); MONOCYTES % 10.1 % (4.4-11.3); NEUTROPHILS # (AUTO) 2.6 (2.1-6.9); NEUTROPHILS % 68.7 % (38.7-80.0); PLATELET COUNT 122 x10e3/uL (140-360); RED BLOOD COUNT 2.66 x10e6/uL (3.6-5.1); RED CELL DISTRIBUTION WIDTH 23.4 % (11.7-14.4)
[2022-06-25 08:00] VITALS: BP 147/67
[2022-06-25] MEDS: INSULIN LISPRO 100 UNIT/1 ML 3ML VIAL SQ SCH (08:00)
[2022-06-25] MEDS: PANTOPRAZOLE SOD 40 MG TABEC PO SCH (08:00)
[2022-06-25 09:12] VITALS: BP 147/67
[2022-06-25] MEDS: APIXAB 2.5 MG TABLET PO SCH (09:46)
[2022-06-25] MEDS: METOPROLOL SUCCINATE 50 MG TAB XL PO SCH (09:46)
[2022-06-25] MEDS: IRON-VITAMIN-MINERAL CAPSULE PO SCH (09:46)
[2022-06-25] MEDS: NIFEDIPINE CR 30 MG TAB PO SCH (09:46)
[2022-06-25] MEDS: TIMOLOL MALEATE 0.5% OPTH DRP 5 ML BTL OS SCH (09:47)
[2022-06-25 12:44] VITALS: BP 156/74
== END 2022-06-25 12:43 | disposition home or self-care (01) | DRG 432 ==
LOC: ER 23:42 → INTOOBSV 06-12 01:43 → ERHOLD 06-12 01:43 → MED/SURG2 06-12 04:31 → OBSVTOIN 06-14 09:47 → ICU 06-20 20:30 → MED/SURG 06-21 12:41
PROVIDERS: ADMIT Internal Medicine; ATTEND Internal Medicine
PROC: 30233N1 Transfusion of Nonautologous Red Blood Cells into Peripheral Vein, Percutaneous Approach (ICD-10-PCS; principal; 2022-06-13)
DX: K74.60 Unspecified cirrhosis of liver (principal); I50.33 Acute on chronic diastolic (congestive) heart failure; I63.40 Cerebral infarction due to embolism of unspecified cerebral artery; J18.9 Pneumonia, unspecified organism; K29.71 Gastritis, unspecified, with bleeding; E87.1 Hypo-osmolality and hyponatremia; R18.8 Other ascites; N17.9 Acute kidney failure, unspecified; I13.0 Hypertensive heart and chronic kidney disease with heart failure and stage 1 through stage 4 chronic kidney disease, or unspecified chronic kidney disease; N39.0 Urinary tract infection, site not specified; E87.20 Acidosis, unspecified; R47.01 Aphasia; D62 Acute posthemorrhagic anemia; N18.4 Chronic kidney disease, stage 4 (severe); D61.818 Other pancytopenia; J91.8 Pleural effusion in other conditions classified elsewhere; D69.6 Thrombocytopenia, unspecified; E83.51 Hypocalcemia; E11.22 Type 2 diabetes mellitus with diabetic chronic kidney disease; E03.9 Hypothyroidism, unspecified; K21.9 Gastro-esophageal reflux disease without esophagitis; E83.52 Hypercalcemia; E86.0 Dehydration; N18.30 Chronic kidney disease, stage 3 unspecified; Z20.822 Contact with and (suspected) exposure to COVID-19; T80.89XA Other complications following infusion, transfusion and therapeutic injection, initial encounter; R21 Rash and other nonspecific skin eruption; B96.20 Unspecified Escherichia coli [E. coli] as the cause of diseases classified elsewhere; E87.6 Hypokalemia; R41.844 Frontal lobe and executive function deficit; D72.819 Decreased white blood cell count, unspecified; I48.0 Paroxysmal atrial fibrillation; Z90.411 Acquired partial absence of pancreas; Z88.5 Allergy status to narcotic agent; Z88.8 Allergy status to other drugs, medicaments and biological substances; Z90.49 Acquired absence of other specified parts of digestive tract; I65.21 Occlusion and stenosis of right carotid artery
CPT/HCPCS: 36415; 70496; 70498; 70551; 71045; 71046; 71250; 74176; 76604; 76700; 78278; 80048; 80053; 81001; 82270; 82550; 82553; 82607; 82728; 82746; 82948; 83010; 83036; 83540; 83605; 83615; 83735; 83880; 84100; 84466; 84484; 85025; 85045; 85610; 86078; 86850; 86870; 86880; 86900; 86905; 86920; 86922; 87040; 87086; 87186; 93005; 93041; 93306; 93880; 94640; 94799; 95819; 96372; 99001; 99251; 99284; A9512; G0378; J0360; J0696; J1200; J1650; J1756; J1940; J2543; J2930; J7030; J7050; P9016; Q0162; Q9967